=== PATIENT | female | born 1935 | race Caucasian/White ===

== ENCOUNTER → 2017-11-25 09:07 | Outpatient (CLI) | payer MEDICARE, OTHER, SELFPAY ==
--- NOTE | 2017-11-25 09:13 | US_ITS ---
HISTORY: ITS.REASON: EPIGASTRIC ABDOMINAL PAIN ORDERING PHYSICIAN: Jerrell Solomon MD PATIENT AGE: 82 years COMPARISON: None FINDINGS: PANCREAS: Unremarkable. No obvious mass or abnormal fluid collection. No ductal dilatation LIVER: No focal liver lesions demonstrated. Homogeneous echogenicity. No intrahepatic biliary ductal dilatation evident RIGHT KIDNEY: Unremarkable. Normal size and echogenicity. No hydronephrosis GALLBLADDER: No gallstones, gallbladder wall thickening, pericholecystic fluid, or biliary dilatation. IMPRESSION: Negative gallbladder/right upper quadrant ultrasound
== END ==
PROVIDERS: Family Provider Family Medicine; PCP Family Medicine; Visit Provider Family Medicine
DX: R10.13 Epigastric pain (principal)
CPT/HCPCS: 76705

== ENCOUNTER → 2018-11-10 14:10 | Outpatient (CLI) | payer MEDICARE, OTHER, SELFPAY ==
--- NOTE | 2018-11-10 14:14 | XR_ITS ---
XR knee RT 4V HISTORY: ITS.REASON: LAT RT KNEE PAIN ORDERING PHYSICIAN: Jerrell Solomon MD PATIENT AGE: 82 years COMPARISON: None FINDINGS: No fracture or dislocation. No lytic or blastic change. Normal mineralization. No significant arthritic changes evident. There is mild diffuse osteopenia. Generalized vascular calcification evident as well.. There is some minimal chondrocalcinosis of the menisci IMPRESSION: 1. No acute finding. 2. Minimal degenerative change
--- NOTE | 2018-11-10 14:14 | XR_ITS ---
XR hip RT 2-3V w/pelvis HISTORY: ITS.REASON: RT HIP PAIN ORDERING PHYSICIAN: Jerrell Solomon MD PATIENT AGE: 82 years COMPARISON: 03/27/2010 FINDINGS: There are moderate to severe osteoarthritic changes of the right hip. No fracture or dislocation. No lytic or blastic change. There is a bipolar prosthesis on the left. Left lower quadrant ostomy is noted and there are degenerative changes in the lumbar spine as well as the SI joints. IMPRESSION: Some moderate to severe osteoarthritis of the right hip with other degenerative changes as described above
== END ==
PROVIDERS: PCP Family Medicine; Visit Provider Family Medicine
DX: M25.561 Pain in right knee (principal); M25.551 Pain in right hip
CPT/HCPCS: 73502; 73564

== ENCOUNTER → 2019-08-14 14:00 | Outpatient (CLI) | payer MEDICARE, OTHER, SELFPAY ==
--- NOTE | 2019-08-14 14:14 | XR_ITS ---
PROCEDURE: XR HIP LT 2-3V W/PELVIS CLINICAL INDICATION: LT HIP PAIN Left hip pain COMPARISON: HIPCMRT XR hip RT 2-3V w/pelvis from 11/10/2018 FINDINGS: Status post left hip arthroplasty with bipolar prosthesis present in good alignment. No evidence of acute fracture. Incidental note is made of osteoarthritis of the right hip with degenerative changes of the lumbar spine and SI joints. An ostomy is present in the left lower quadrant. IMPRESSION: Status post left hip replacement with bipolar prosthesis with osteoarthritis and no acute finding Dictated by: Avery Cordero MD 08/14/2019 17:11 Electronically signed by Avery Cordero MD in [place] 08/14/2019 17:11
--- NOTE | 2019-08-14 14:14 | XR_ITS ---
PROCEDURE: XR KNEE LT 3V CLINICAL INDICATION: LT KNEE PAIN Left knee pain COMPARISON: [id number] XR knee RT 4V from 11/10/2018 FINDINGS: No fracture or dislocation. No lytic or blastic change. There is normal mineralization. There are mild osteoarthritic changes of the medial compartment and patellofemoral joint. There is chondrocalcinosis medially. Nonspecific calcification noted superior to the patella and could represent a small loose body. There is vascular calcification. IMPRESSION: Mild osteoarthritic change with possible loose body in the suprapatellar region with chondrocalcinosis Dictated by: Avery Cordero MD 08/14/2019 17:13 Electronically signed by Aveyr Cordero MD in [facility] 08/14/2019 17:13
== END ==
PROVIDERS: PCP Family Medicine; Visit Provider Family Medicine
DX: M25.552 Pain in left hip (principal)
CPT/HCPCS: 73502; 73562

== ENCOUNTER → 2020-04-11 11:36 | Outpatient (CLI) | payer MEDICARE, OTHER, SELFPAY ==
[2020-04-13 06:08] LABS: Covid-19 Nasal PCR Sendout Lex Not Detected
== END ==
PROVIDERS: PCP Family Medicine; Visit Provider Family Medicine
DX: Z03.818 Encounter for observation for suspected exposure to other biological agents ruled out (principal)
CPT/HCPCS: U0004

== ENCOUNTER → 2020-08-30 14:56 | Outpatient (CLI) | payer MEDICARE, OTHER, SELFPAY ==
--- NOTE | 2020-08-30 15:03 | US_ITS ---
APPROVED REPORT Exam Type: Lower Extremity Segmental Pressures Hazmat Cdl A Driver: Kristine Shine RDCS Indications Claudication: Rest Pain: Edema Current Smoker History of Smoking Risk Factors Diabetes Pressures/Indices Right Indices Left Indices Brachial 176.00 mmHg Brachial 181.00 mmHg Low Thigh 174.00 mmHg 0.96 Low Thigh 157.00 mmHg 0.87 Calf 163.00 mmHg 0.90 Calf 98.00 mmHg 0.54 Ankle(PT) 144.00 mmHg 0.80 Ankle(PT) 86.00 mmHg 0.48 Ankle(DP) 144.00 mmHg 0.80 Ankle(DP) 80.00 mmHg 0.44 Digit 52.00 mmHg 0.29 Digit 51.00 mmHg 0.28 Findings DIMINISHED WAVEFORMS AT ANKLES NORMAL PULSES R NOREEN .8 L NOREEN .5 R TBI .3 L TBI .3 CALLED OFFICE SPOKE TO JOVANNI Conclusion DIMINISHED WAVEFORMS AT ANKLES NORMAL PULSES R NOREEN .8 L NOREEN .5 R TBI .3 L TBI .3 Moderate arterial disease CALLED OFFICE SPOKE TO JOVANNI Electronically signed by : Avery Cordero MD 08/30/2020 15:50:48
== END ==
PROVIDERS: PCP Family Medicine; Visit Provider Family Medicine
DX: I70.213 Atherosclerosis of native arteries of extremities with intermittent claudication, bilateral legs (principal)
CPT/HCPCS: 93923

== ENCOUNTER → 2020-09-16 09:51 | Outpatient (CLI) | payer MEDICARE, OTHER, SELFPAY ==
--- NOTE | 2020-09-16 10:19 | CT_ITS ---
Procedure: CT ANGIO ABDOMEN/FEMORAL CLINICAL HISTORY: POOR CIRCULATION OF EXTREMITY poor circulation of bilat lower extremities 120ml iso 370, 100ml saline US, 08/30/[address] COMPARISON: No exams were available for comparison TECHNIQUE: IV Contrast: 100ml Isovue 370 Axial images obtained with sagittal and coronal reformats. All CT scans at the facility use one or more dose reduction, viz: automated exposure control, ma/kV adjustment per patient size (including targeted exams where dose is matched to indication, i.e. head), or iterative reconstruction technique. FINDINGS: There are atheromatous changes the abdominal aorta and its branches. No aneurysm, dissection, or significant stenosis is evident. Small amount of plaque involving the left renal artery but no significant stenosis. There is 30 percent stenosis of the right renal artery. Calcific plaque is present at the ostium the celiac artery causing 30 percent stenosis. The SMA has an unremarkable appearance. The KUNAL is patent. Right lower extremity with runoff. Calcific plaque is present involving the right common iliac artery and right external iliac artery with no significant stenotic areas. 30 percent or less stenosis present in the right external iliac. Right common femoral shows no significant stenosis with some scattered calcific plaque Scattered atheromatous plaque involves the right femoral artery. There is a 50 percent stenosis involving the proximal right femoral artery moderate amount calcific plaque involves the distal right femoral artery with 50 stenosis. The right popliteal artery has an unremarkable appearance other than atherosclerotic change. Atherosclerotic changes involve the right tibial peroneal trunk in the runoff vessels. There is occlusion of the right anterior tib proximally. The Left lower extremity runoff: Atheromatous changes involve the left common and external iliac artery with no significant stenosis. 50 percent stenosis involves the proximal femoral artery. There are scattered segmental areas of calcific and soft plaque involving the left femoral artery. There is critical stenosis involving the mid aspect of the left femoral artery with 90 percent stenosis. A string sign is present at this area. Long segment stenosis involves the mid aspect of the left femoral artery at this region and measures approximately 10 cm in length. Scattered atheromatous changes involve the left popliteal artery. There is 3 vessel runoff on the left to the ankle There is a left lower quadrant ostomy containing small bowel. Moderate amount of small-bowel has herniated into the hernia sac in the abdominal wall. No intestinal obstruction it is difficult to determine the type of surgery the patient has had due to the multiple loops of unopacified bowel. There is thickening of the presacral fat with increased density in the presacral region. There are other areas of decreased attenuation in this region which could be related unopacified bowel or abscess. Suggest repeat CT abdomen pelvis with adequate oral contrast for further delineation. Please correlate with patient's surgical history. There are no previous exams available at this institution for comparison. There are degenerative changes in the hips. There is a 5 cm cystic structure in the right adnexa nonspecific. IMPRESSION: 1. A diffuse atheromatous changes of the aorta iliac vessels and lower extremity runoff vessels. This is causing areas of stenosis. 2. 50 percent or less stenosis involving the right proximal femoral artery and distal right femoral artery the with 3 vessel runoff on the right. 3. Severe segmental areas of stenosis of the left femoral artery with critical stenosis in the mid aspect
[2020-09-16 10:35] LABS: Blood Urea Nitrogen 7 mg/dl (7-17); Estimated Glomerular Filt Rate 153 ml/min (>60); GFR (African American) 185 ML/MIN (>60)
== END ==
PROVIDERS: PCP Family Medicine; Visit Provider Family Medicine
DX: R09.89 Other specified symptoms and signs involving the circulatory and respiratory systems (principal); I70.213 Atherosclerosis of native arteries of extremities with intermittent claudication, bilateral legs; I77.1 Stricture of artery; R60.0 Localized edema; F17.210 Nicotine dependence, cigarettes, uncomplicated
CPT/HCPCS: 36415; 75635; 82565; 84520; Q9967

== ENCOUNTER → 2020-09-24 12:34 | Outpatient (CLI) | payer MEDICARE, OTHER, SELFPAY ==
[2020-09-24 12:48] LABS: Basophils % 0.8 % (0.1-2.0); Eosinophils # 0.1 K/mm3 (0.0-0.4); Eosinophils % 1.1 % (0.1-12.0); Hematocrit 37.6 % (37.0-47.0); Hemoglobin 11.7 g/dL (12.2-16.2); Lymphocytes # 1.1 K/mm3 (0.7-4.5); Lymphocytes % 18.9 % (10-50); Mean Corpuscular HGB Conc 31.2 g/dL (31.8-35.4); Mean Corpuscular Hemoglobin 28.3 pg (27.0-31.2); Mean Corpuscular Volume 90.7 fl (81-99); Mean Platelet Volume 9.3 fl (7.4-10.4); Monocytes # 0.2 K/mm3 (0.1-1.0); Monocytes % 4.1 % (1.7-9.3); Neutrophils # 4.4 K/mm3 (1.8-7.8); Neutrophils % 75.2 % (37.0-80.0); Platelet Count 424 K/mm3 (142-424); Red Blood Count 4.15 M/mm3 (4.20-5.40); Red Cell Distribution Width 18.6 % (11.5-17.5); White Blood Count 5.9 K/mm3 (4.8-10.8)
[2020-09-24 14:25] LABS: Chloride 97 mmol/L (98-107); Potassium 5.2 mmoL/L (3.5-5.1); Sodium 132 mmol/L (136-145)
[2020-09-24 14:28] LABS: Anion Gap 11.2 mEq/L (5-15); Blood Urea Nitrogen 9 mg/dl (7-17); Calcium 10.7 mg/dl (8.4-10.2); Carbon Dioxide 29 mmol/L (22.0-30.0); Estimated Glomerular Filt Rate 118 ml/min (>60); GFR (African American) 143 ML/MIN (>60); Glucose 91 mg/dl (74-100)
[2020-09-24 15:35] LABS: Coronavirus 19 IgG Antibody Negative (Negative); Coronavirus 19 IgM Antibody Negative (Negative)
== END ==
PROVIDERS: Visit Provider Internal Medicine
DX: Z01.818 Encounter for other preprocedural examination (principal); I25.10 Atherosclerotic heart disease of native coronary artery without angina pectoris
CPT/HCPCS: 36415; 80048; 85025; 86328

== ENCOUNTER 2020-09-25 07:59 | Day surgery (SDC) | payer MEDICARE, OTHER, SELFPAY ==
[2020-09-25] VITALS (12 sets, daily range): BP systolic 121–182; BP diastolic 53–91; PULSE 60–80; RESP 12–18; TEMP 36.7; O2SAT 91–100; BMI 26.9
--- NOTE | 2020-09-25 07:13 | IR_ITS ---
APPROVED REPORT Patient Location: Outpatient PROCEDURES Catheter placement in the abdominal aorta Abdominal aortography Bilateral iliofemoral runoff Informed consent was obtained prior to the procedure. COMPLICATIONS NONE Estimated Blood Loss: LESS THAN 10 ML TECHNIQUE 1% lidocaine used anesthetize the right groin the right femoral artery was accessed via the Salinger technique and a 5 Croatian sheath was placed in the right femoral artery. A pigtail catheter was advanced and abdominal aortography was performed. The catheter was then repositioned and bilateral iliofemoral angiography was performed. At the end of the procedure the apparatus was removed the sheath was removed good hemostasis was achieved using manual pressure patient was transferred to the postop holding in stable condition ANGIOGRAPHIC RESULTS The distal abdominal aorta is widely patent with mild 10% atheromatous plaque. The bilateral common iliac arteries are widely patent with 20% stenoses. The bilateral internal iliac arteries are patent. The bilateral external iliac arteries and bilateral common femoral arteries are widely patent. Bilateral profunda femoris arteries are patent The right superficial femoral artery has mild to moderate atheromatous plaque in the proximal and mid segment nothing greater than 40%. At Ck's canal there is a 60 to 70% stenosis. The popliteal artery has mild atheromatous plaque and then gives rise to the anterior tibialis artery posterior tibialis artery and peroneal artery. There is three-vessel runoff into the right foot The left superficial femoral artery has proximal 40% stenoses and then severely stenosed with a long 90% mid vessel stenosis. The vessel has a nice collateral from the profunda femoris artery which collateralizes into the proximal popliteal artery. The popliteal artery then has mild atheromatous plaque with three-vessel runoff below the foot. Blood equally distributes and arrives at the left and right foot simultaneously IMPRESSION Peripheral artery disease as described above most notably with a severely stenosed left superficial femoral artery PLAN 1. I recommend medical management at this time. The initial CTA report referred to the left femoral artery is being severely stenosed however angiography demonstrates its the left superficial femoral artery which is severely stenosed. This does not significantly exchange administrator. Patient's symptoms do not appear to support revascularization at this time. I would recommend patient undergo aggressive physical therapy with walking protocol. 2. Patient can be reevaluated in 4 to 6 weeks to determine if physical therapy has improved her symptoms. This particular stenosis should only be producing left calf pain and not thigh pain and hip pain the patient was previously describing. Typically patients with this type of stenosis can be managed medically and less poorly healing ulcer develops or recalcitrant claudication. Electronically signed by : Donis Natarajan, 09/25/2020 14:32:59
== END 2020-09-25 13:19 | disposition home or self-care (01) ==
LOC: CATHLAB 08:00
PROVIDERS: PCP Family Medicine; Visit Provider Internal Medicine
DX: E11.51 Type 2 diabetes mellitus with diabetic peripheral angiopathy without gangrene (principal); I70.211 Atherosclerosis of native arteries of extremities with intermittent claudication, right leg; M79.89 Other specified soft tissue disorders; R93.5 Abnormal findings on diagnostic imaging of other abdominal regions, including retroperitoneum; Z79.84 Long term (current) use of oral hypoglycemic drugs; I10 Essential (primary) hypertension; E78.5 Hyperlipidemia, unspecified; Z72.0 Tobacco use; Z79.899 Other long term (current) drug therapy; I77.1 Stricture of artery
CPT/HCPCS: 36247; 75716; 99152; 99153; C1725; C1769; C1894; J1644; Q9966

== ENCOUNTER → 2021-01-02 14:15 | Outpatient (CLI) | payer MEDICARE, OTHER, SELFPAY ==
--- NOTE | 2021-01-02 14:20 | CT_ITS ---
PROCEDURE: CT CHEST WO/W CON CLINCAL INDICATION: WEIGHT LOSS,COUGH,MUCOSITIS,SMOKER,HEMOPTYSIS COMPARISON: CT CTA CTA-CHEST from 05/31/2016 TECHNIQUE: IV Contrast: 75ml Isovue 370 Axial images obtained with sagittal and coronal reformats. All CT scans at the facility use one or more dose reduction, viz: automated exposure control, ma/kV adjustment per patient size (including targeted exams where dose is matched to indication, i.e. head), or iterative reconstruction technique. FINDINGS: There is a large right upper lobe mass encompassing the apical and anterior segments of the right upper measuring by 13 by 7 cm cephalad caudad, AP, and transverse respectively. The mass extends from the apex of the right upper lobe inferiorly with extension into the right hilum and middle mediastinal area with constriction of the right upper lobe arteries. There is consolidation within the posterior segment right upper lobe with nodular areas which may be due to dense consolidation or satellite nodules from the mass. No destructive changes of the overlying thoracic wall. The mass does not appear to extend through the thoracic wall. There is right-sided the volume loss with mediastinal shift toward the right. Enlarged precarinal node is present at 1.9 cm. A central precarinal node measures 1.4 cm and there are mildly prominent subcarinal nodes measuring 1.7 and 1.8 cm. There are changes of COPD. No effusions are evident. The there is no left hilar adenopathy in no extension mediastinal adenopathy past midline. No bony destructive process. There is an old right 5th rib fracture. No bony destructive process. Coronary artery calcifications are present. No adrenal mass. IMPRESSION: Large right upper lobe mass as described above with extension into the middle mediastinum and right hilum and with mediastinal adenopathy consistent with neoplasm. There is associated consolidation in the posterior segment of the right upper lobe with nodular opacities which could represent satellite nodules or dense areas of consolidation. Dictated by: Avery Cordero MD 01/04/2021 11:00 Avery Cordero MD in [place] 01/04/2021 11:00
== END ==
PROVIDERS: PCP Family Medicine; Visit Provider Family Medicine
DX: R05 Cough (principal); R63.4 Abnormal weight loss; K12.30 Oral mucositis (ulcerative), unspecified; F17.210 Nicotine dependence, cigarettes, uncomplicated
CPT/HCPCS: 71270; Q9967

== ENCOUNTER → 2021-01-20 10:26 | Outpatient (CLI) | payer MEDICARE, OTHER, SELFPAY ==
[2021-01-20 11:42] LABS: Blood Urea Nitrogen 11 mg/dl (7-17); Estimated Glomerular Filt Rate 118 ml/min (>60); GFR (African American) 143 ML/MIN (>60)
== END ==
PROVIDERS: Visit Provider Family Medicine
DX: D38.1 Neoplasm of uncertain behavior of trachea, bronchus and lung (principal); M54.2 Cervicalgia
CPT/HCPCS: 36415; 82565; 84520

== ENCOUNTER → 2021-01-23 10:27 | Outpatient (CLI) | payer MEDICARE, OTHER, SELFPAY ==
--- NOTE | 2021-01-23 10:32 | CT_ITS ---
PROCEDURE: CT SOFT TISSUE NECK W CON CLINICAL HISTORY: OROPHARYNGEAL DYSPHAGIA Right sided neck/throat pain x several months Pt states that sometimes there is a knot that comes up No palpable area today, but general location marked with BB COMPARISON: CT HDWO CT HEAD W/O CONTRAST from 05/31/[address] CHEST WO/W CON from 01/02/2021 TECHNIQUE: Oral Contrast: 75 mL Isovue 370 IV Contrast: None Axial images obtained with sagittal and coronal reformats. All CT scans at the facility use one or more dose reduction, viz: automated exposure control, ma/kV adjustment per patient size (including targeted exams where dose is matched to indication, i.e. head), or iterative reconstruction technique. FINDINGS: The nasopharynx has an unremarkable appearance. There is some mild thickening in the left parapharyngeal region at the level of the uvula. Correlation with direct visualization suggested. The epiglottis has an unremarkable appearance as does the glottic and subglottic region. There has been prior anterior cervical disc fusion at C5-C6 and C7. There is a 1.8 x 0.8 cm nodule in the subcutaneous tissues superficial to the right masseter muscle and may represent an enlarged lymph node. The area of palpable concern is marked with a BB. Deep to this region is a normal-appearing submandibular gland. No abscess apparent. Coronary artery calcification is noted bilaterally. Large right upper lobe necrotic mass is once again noted consistent with neoplasm. At the level of the aortic arch the mass measures at least 13 by 6.8 cm. The mass appears larger compared to the previous chest CT of 01/02/2021 however some of this could be related to postobstructive changes. A small collection of blood vessels is noted in the temporal lobe on the right anteriorly consistent with an AVM. This cluster of vessels measures 10 mm in AP dimension. Prominent hypertrophic changes are present at the sternoclavicular joint with pannus formation on both sides IMPRESSION: 1. No abnormality corresponding to the placed BB which is the area of palpable concern. Submandibular gland is present deep to this region. 2. 1.8 x 1 cm subcutaneous nodular lesion superficial to the right masseter muscle and may be due to a mildly prominent lymph node. 3. Mild thickening in the left parapharyngeal region at the level of the uvula. Direct visualization may provide further evaluation. 4. Large right upper lobe mass as recently described which appears somewhat larger compared to the previous chest CT some of which could be due to postobstructive pneumonitis. 5. 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
== END ==
PROVIDERS: PCP Family Medicine; Visit Provider Family Medicine
DX: M54.2 Cervicalgia (principal); R13.12 Dysphagia, oropharyngeal phase
CPT/HCPCS: 70491; Q9967

== ENCOUNTER → 2021-01-27 12:04 | Outpatient (CLI) | payer MEDICARE, OTHER, SELFPAY ==
[2021-01-27 12:43] LABS: Basophils % 0.2 % (0.1-2.0); Eosinophils % 0.6 % (0.1-12.0); Hematocrit 31.3 % (37.0-47.0); Hemoglobin 9.6 g/dL (12.2-16.2); Lymphocytes # 0.8 K/mm3 (0.7-4.5); Lymphocytes % 11.5 % (10-50); Mean Corpuscular HGB Conc 30.6 g/dL (31.8-35.4); Mean Corpuscular Hemoglobin 27.4 pg (27.0-31.2); Mean Corpuscular Volume 89.7 fl (81-99); Mean Platelet Volume 7.5 fl (7.4-10.4); Monocytes # 0.3 K/mm3 (0.1-1.0); Monocytes % 3.7 % (1.7-9.3); Neutrophils # 6.1 K/mm3 (1.8-7.8); Platelet Count 453 K/mm3 (142-424); Red Blood Count 3.49 M/mm3 (4.20-5.40); Red Cell Distribution Width 16.4 % (11.5-17.5); White Blood Count 7.3 K/mm3 (4.8-10.8)
[2021-01-27 13:09] LABS: Prothrombin Time 11.6 seconds (10.1-12.5)
[2021-01-27 13:10] LABS: INR 0.98 (0.9-1.1)
== END ==
PROVIDERS: Visit Provider Internal Medicine Pulmonary Disease
DX: J45.909 Unspecified asthma, uncomplicated (principal); I73.9 Peripheral vascular disease, unspecified; R59.0 Localized enlarged lymph nodes
CPT/HCPCS: 36415; 85025; 85610

== ENCOUNTER → 2021-02-04 10:20 | Outpatient (CLI) | payer MEDICARE, OTHER, SELFPAY | PROVIDERS: PCP Family Medicine; Visit Provider Internal Medicine Pulmonary Disease | DX: Z20.822 Contact with and (suspected) exposure to COVID-19 (principal) | CPT/HCPCS: U0003 ==

== ENCOUNTER 2021-02-05 09:02 | Day surgery (SDC) | payer MEDICARE, OTHER, SELFPAY ==
[2021-01-31 12:44] VITALS: BMI 25.7
[2021-02-05] VITALS (12 sets, daily range): BP systolic 119–151; BP diastolic 55–80; PULSE 72–86; RESP 16–18; TEMP 36.1–43; O2SAT 90–97
[2021-02-05 10:29] LABS: POC Glucose,Bedside 120 (70-110)
--- NOTE | 2021-02-05 10:49 | P.PN_ITS ---
[facility] Anesthesia Checklist - Structural Data Admitted From: Home Planned Operative Procedure/s: bronchoscopy Consent for Planned Operative Procedure(s) Verified: Yes - Additional verifications Anesthesia Reactions: No Hx Blood Transfusions: Yes Blood Transfusion Reaction: No - Airway Assessment C-Spine Mobility Assessed: Yes TMJ Mobility Assessed: Yes Dentition: Dentures-good fit - Neurological Assessment Level of Consciousness: Awake, Alert, Appropriate - Anesthesia Plan Anesthesia Risk discussed: Yes Anesthesia Plan: Verified ASA Class: III Anesthesia Type: General [facility] History I have reviewed the patient's past medical history: Yes Medical History: Reports:: Diabetes Mellitus Type 2, Hyperlipidemia, Hypertension Denies:: Cancer, Diabetes Mellitus Type 1, Internal Pacemaker, Lung Disease, MRSA, Seizures *Have you ever received a pneumonia vaccine?: Yes *Have you received a flu vaccine this season?: Yes Other Medical History: Reports: Anemia. Denies: Blood Transfusion Reaction Anesthesia experience/problems:: none Laterality Cases: Bilateral: Other Other Surgeries: Yes: No Previous Surgery, Angiogram, Cancer Surgery, Colonoscopy. No: Pacemaker Amputation: No Fractures: No - *Social History Last grade of school completed: GED Smoking Status: Current every day smoker Tobacco Type: cigarettes # Packs/Day (cigarettes): 1 #Yrs smoked (if former smoker): 60 Alcohol Intake: never Substance Use Type: denies use *Occupational Status:: retired Housing: house *Travel in the last 8 weeks: None Family Hx:: Coronary Artery Disease
--- NOTE | 2021-02-05 11:56 | P.PN_ITS ---
[facility] Anesthesia Record Part I Intake, IV Amount: 1,000 Estimated blood loss (mL): 0 Urine output (mL): 0 Blood Pressure: 148/61 SaO2: 97 Pulse Rate: 77 Respiratory Rate: 16 Temperature: 97 F Patient is:: Drowsy, Stable Stable to PACU at:: 11:50
[2021-02-05 12:03] LABS: POC Glucose,Bedside 118 (70-110)
--- NOTE | 2021-02-05 12:43 | HMH.BRONCH ---
- Procedure: Date: 02/05/21 Patient Date of :: 1935 Procedure Performed:: Bronchoscopy with endobronchial ultrasound fine-needle aspiration and endobronchial biopsies Indications:: Lung mass and lymphadenopathy Performing Provider:: Elfego Lezama MD Referring Provider:: Dr. Solomon Sedation:: General anesthesia Procedure:: Clean endobronchial ultrasound bronchoscopy advance to the 8 state ET tube and lymph node stations were examined, patient was found to have lymphadenopathy at stations 10 L, 7, 4R and 10 R. Endobronchial ultrasound-guided fine-needle aspirations were performed at stations 10 L, 7 and 4R. At stations 10 L and 7 adequate lymphocytes were found however no malignancy found on bedside examination. Station 4R is positive for malignancy likely non-small cell lung cancer. 5 passes were performed at each lymph node tissues tissues were also sent for CytoLyt examination along with slides at bedside. EBUS bronchoscopy was retracted and the diagnostic bronchoscopy was advanced and airways were examined up to subsegmental bronchi. The right upper lobe bronchi is completely occluded with the mass and the mass seen protruding into the right mainstem bronchi. Endobronchial biopsies were performed, total of 7 biopsies were performed. Bedside touch prep preparation by the pathology positive for atypical cells likely non-small cell lung cancer. Rest of the airway appeared grossly normal. No evidence of bleeding or mucous plugging noted. Hemostasis achieved after the biopsies. Patient tolerated the procedure well. We will schedule the patient with hematology oncology before discharge today. Will follow with the patient in pulmonary clinic within a week to discuss the final results. Findings:: Please see the procedure note Recommendations:: Please see the procedure note Complications:: None Estimated blood obtained (mL): 5
--- NOTE | 2021-02-06 11:35 | P.PN_ITS ---
[facility] Anesthesia Record Part II Discharge Time: 12:20 Destination: [facility] PACU nurse assessment reviewed?: Yes Patient Condition:: Good Anesthesia Complications:: None Swallowing reflex intact?: Yes Cyanosis?: No Blood Pressure: 128/69 Pulse Rate: 77 Temperature: 99.2 F Mental Status: Alert & Oriented Pain level:: 0 Nausea and/or vomitting:: None Intake, IV Amount: 1,500
[2021-02-06 11:36] VITALS: BP 128/69; PULSE 77; TEMP 37.3
== END 2021-02-05 13:07 | disposition home or self-care (01) ==
LOC: OR 09:04
PROVIDERS: PCP Family Medicine; Visit Provider Internal Medicine Pulmonary Disease
DX: C34.11 Malignant neoplasm of upper lobe, right bronchus or lung (principal); R91.8 Other nonspecific abnormal finding of lung field; E11.9 Type 2 diabetes mellitus without complications; I10 Essential (primary) hypertension; E78.5 Hyperlipidemia, unspecified; Z72.0 Tobacco use; Z79.84 Long term (current) use of oral hypoglycemic drugs; Z79.899 Other long term (current) drug therapy; Z93.3 Colostomy status; Z85.038 Personal history of other malignant neoplasm of large intestine; Z85.41 Personal history of malignant neoplasm of cervix uteri
CPT/HCPCS: 31624; 31653; 82962; 88172; 88173; 88177; 88305; 88342; J2405

== ENCOUNTER 2021-02-17 14:11 | Outpatient (CLI) | payer MEDICARE, OTHER, SELFPAY ==
[2021-02-17 14:17] VITALS: BP 116/63; PULSE 87; RESP 18; TEMP 36.4; O2SAT 97
[2021-02-17 14:40] VITALS: BP 123/67; PULSE 84; RESP 18; O2SAT 97
== END 2021-02-17 14:40 | disposition home or self-care (01) ==
LOC: INF 14:11
PROVIDERS: Visit Provider Family Medicine
DX: D50.8 Other iron deficiency anemias (principal)
CPT/HCPCS: 96374; Q0138

== ENCOUNTER 2021-02-20 14:14 | Outpatient (CLI) | payer MEDICARE, OTHER, SELFPAY ==
[2021-02-20 14:35] VITALS: BP 161/66; PULSE 98; RESP 18; TEMP 36.4; O2SAT 96
[2021-02-20 15:00] VITALS: BP 158/67; PULSE 88; RESP 18; O2SAT 97
== END 2021-02-20 15:00 | disposition home or self-care (01) ==
LOC: INF 14:14
PROVIDERS: Visit Provider Family Medicine
DX: D58.8 Other specified hereditary hemolytic anemias (principal)
CPT/HCPCS: 96374; Q0138

== ENCOUNTER 2021-04-09 01:28 | Inpatient (IN) | payer MEDICARE, OTHER, SELFPAY ==
[2021-04-09] VITALS (15 sets, daily range): BP systolic 96–143; BP diastolic 50–74; PULSE 78–120; RESP 16–24; TEMP 36.8–38.5; O2SAT 91–99; BMI 24.0; BMI 24.5
--- NOTE | 2021-04-09 01:32 | ECG_ITS ---
APPROVED REPORT Exam: Resting ECG HR:108 bpm ECG Measurements Heart Rate 108 AXES RI 132 P 50 QRSd 74 QRS 30 QT 304 T 44 QTc 407 Conclusion Sinus tachycardia with premature atrial complexes Low voltage QRS Borderline ECG Electronically signed by : Jerrell Reynolds, 04/12/2021 11:10:41
--- NOTE | 2021-04-09 01:40 | XR_ITS ---
PROCEDURE INFORMATION: Exam: XR Chest Exam date and time: 04/09/2021 1:40 AM Age: 85 years old Clinical indication: Cough and other: Lung cancer patient; Patient HX: Lung cancer, cough TECHNIQUE: Imaging protocol: XR of the chest. Views: 1 view. COMPARISON: CT CHEST WO/W CON 01/02/2021 3:28 PM FINDINGS: Lungs: Postsurgical volume loss involving the right hemithorax. Dense airspace disease at the right upper lobe with volume loss involving the right hemithorax. Consider pneumonia versus tumor. Left lung is clear with no pneumothorax. Pleural spaces: Unremarkable. No pleural effusion. No pneumothorax. Heart/Mediastinum: Fullness of the cardiac silhouette. Tortuous thoracic aorta. Bones/joints: Degenerative changes of the spine and acromioclavicular joints. Cervicothoracic fusion hardware identified. IMPRESSION: Persisting dense opacity at the right upper lobe. Differential diagnosis includes tumor as well as pneumonia.
[2021-04-09 01:50] LABS: Hematocrit 28.6 % (37.0-47.0); Lymphocytes # 0.2 K/mm3 (0.7-4.5); Lymphocytes % 2.5 % (10-50); Mean Corpuscular HGB Conc 31.6 g/dL (31.8-35.4); Mean Corpuscular Hemoglobin 28.9 pg (27.0-31.2); Mean Corpuscular Volume 91.5 fl (81-99); Mean Platelet Volume 7.9 fl (7.4-10.4); Monocytes # 0.2 K/mm3 (0.1-1.0); Monocytes % 3.4 % (1.7-9.3); Neutrophils # 6.8 K/mm3 (1.8-7.8); Neutrophils % 94.1 % (37.0-80.0); Platelet Count 318 K/mm3 (142-424); Red Blood Count 3.12 M/mm3 (4.20-5.40); Red Cell Distribution Width 20.2 % (11.5-17.5); White Blood Count 7.2 K/mm3 (4.8-10.8)
[2021-04-09 01:53] LABS: Microscopic, Urine URINE MICROSCOPIC (MICROSCOPIC)
--- NOTE | 2021-04-09 01:53 | PC.NURSE ---
daughter at bedside
[2021-04-09 01:54] LABS: Alanine Aminotransferase 13 U/L (12-78); Albumin Level 2.9 g/dl (3.5-5.0); Alkaline Phosphatase 142 U/L (38-126); Anion Gap 8.1 mEq/L (5-15); Aspartate Amino Transferase 20 U/L (14-36); Bilirubin,Direct 0.3 mg/dl (0.0-0.4); Bilirubin,Indirect 0.1 mg/dL (0.0-0.9); Bilirubin,Total 0.4 mg/dl (0.2-1.3); Bilirubin,Unconjugated 0.1 mg/dL (0.0-1.1); Blood Urea Nitrogen 21 mg/dl (7-17); Calcium 9.1 mg/dl (8.4-10.2); Carbon Dioxide 25 mmol/L (22.0-30.0); Chloride 98 mmol/L (98-107); Creatinine Clearance Estimated 43 mL/min (50-200); Estimated Glomerular Filt Rate 152 ml/min (>60); GFR (African American) 184 ML/MIN (>60); Glucose 99 mg/dl (74-100); Potassium 4.1 mmoL/L (3.5-5.1); Sodium 127 mmol/L (136-145); Total Protein,Serum 5.7 g/dl (6.3-8.2)
[2021-04-09 01:54] LABS: Appearance,Urine CLEAR (Clear); Bilirubin,Urine Negative (Negative); Blood, Urine TRACE-I (Negative); Color,Urine YELLOW (Yellow); Glucose,Urine (UA) Negative (Negative); Ketones,Urine 2+ (Negative); Leukocyte Esterase,Urine 1+ (Negative); Nitrate,Urine POSITIVE (Negative); Protein,Urine 1+ (Negative); Specific Gravity, Urine 1.025 (1.005-1.030); Urobilinogen,Urine 0.2 EU/dl (0.2)
[2021-04-09 02:00] LABS: C-Reactive Protein 301.1 mg/L (0-4)
[2021-04-09 02:01] LABS: MANUAL DIFFERENTIAL MANUAL DIFFERENTIAL (MANUAL DIFF)
[2021-04-09 02:03] LABS: Amorphous Sediment,Urine 1+ /lpf; Bacteria,Urine 3+ /lpf; Mucus,Urine 1+ /lpf
--- NOTE | 2021-04-09 02:05 | CT_ITS ---
PROCEDURE INFORMATION: Exam: CT Thoracic Spine Without Contrast Exam date and time: 04/09/2021 2:05 AM Age: 85 years old Clinical indication: Pain in thoracic spine; Without myelpathy or radiculopathy; Patient HX: Decreased mobility and increased back pain this am. PT has lung cancer and rectal cancer TECHNIQUE: Imaging protocol: Computed tomography images of the thoracic spine without contrast. Radiation optimization: All CT scans at this facility use at least one of these dose optimization techniques: automated exposure control; mA and/or kV adjustment per patient size (includes targeted exams where dose is matched to clinical indication); or iterative reconstruction. COMPARISON: No relevant prior studies available. FINDINGS: Vertebrae: Diffuse osteopenia. Multilevel spine degenerative changes. No critical central canal stenosis. No significant neural foraminal stenosis. Discs/Spinal canal/Neural foramina: See Vertebrae finding. Other bones/joints: No unusual lytic or sclerotic lesions of bone. Soft tissues: Large soft tissue mass occupying the majority of the right upper lobe is concerning for a malignancy and contains central necrosis. Heart: Multivessel coronary calcific arteriosclerosis. IMPRESSION: 1. Large right upper lobe heterogeneous mass with central necrosis. This is incompletely imaged on this study but is concerning for malignancy. 2. No critical central canal stenosis involving the thoracic spine. 3. Small right pleural effusion.
--- NOTE | 2021-04-09 02:05 | CT_ITS ---
PROCEDURE INFORMATION: Exam: CT Lumbar Spine Without Contrast Exam date and time: 04/09/2021 2:05 AM Age: 85 years old Clinical indication: Low back pain; Prior surgery; Surgery date: 6+ months; Surgery type: Hip, colon; Patient HX: Decreased mobility and increased back pain this am. HX of lung and rectal cancer TECHNIQUE: Imaging protocol: Computed tomography images of the lumbar spine without contrast. Radiation optimization: All CT scans at this facility use at least one of these dose optimization techniques: automated exposure control; mA and/or kV adjustment per patient size (includes targeted exams where dose is matched to clinical indication); or iterative reconstruction. COMPARISON: No relevant prior studies available. FINDINGS: Vertebrae: Diffuse osteopenia. Discs/Spinal canal/Neural foramina: Multilevel spine degenerative changes. At least moderate degenerative of the SI joints. Severe degenerative disease at L4-L5 due to multifactorial degenerative changes. Sacrum/coccyx: Symmetric sclerotic changes involving the right and left sacral ala could potentially represent osteonecrosis. Pleural space: Small right pleural effusion. Vasculature: Atherosclerotic calcifications of the nonaneurysmal aorta and iliac arteries. Atherosclerotic calcifications of the splenic arteries. Soft tissues: Unremarkable. IMPRESSION: Symmetric sclerosis involving the right and left sacral ala could potentially represent osteonecrosis.
[2021-04-09 02:09] LABS: Troponin I 0.02 ng/ml (0.00-0.034)
--- NOTE | 2021-04-09 02:11 | CT_ITS ---
PROCEDURE INFORMATION: Exam: CT Cervical Spine Without Contrast Exam date and time: 04/09/2021 2:11 AM Age: 85 years old Clinical indication: Neck pain; Prior surgery; Surgery date: 6+ months; Surgery type: Cervical spine; Patient HX: Decreased mobility and increased neck and back pain this am. PT has rectal and lung cancer TECHNIQUE: Imaging protocol: Computed tomography images of the cervical spine without contrast. Radiation optimization: All CT scans at this facility use at least one of these dose optimization techniques: automated exposure control; mA and/or kV adjustment per patient size (includes targeted exams where dose is matched to clinical indication); or iterative reconstruction. COMPARISON: CT SOFT TISSUE NECK W CON 01/23/2021 10:47 AM FINDINGS: Atherosclerotic calcifications of the internal carotid arteries bilaterally. C5 through C7 anterior cervical discectomy and fusion. Diffuse osteopenia. Multilevel degenerative changes. No acute or healing fracture. No critical central canal stenosis. Mass at the right apex. IMPRESSION: 1. No acute or healing fracture or acute posttraumatic malalignment. 2. No evidence for metastatic disease. 3. Large mass at the right pulmonary apex is concerning for a malignancy.
[2021-04-09 02:14] LABS: Procalcitonin 0.307 ng/mL (0.0-2.0)
[2021-04-09 02:19] LABS: Lactic Acid 0.9 mmol/L (0.7-2.1)
[2021-04-09 02:25] LABS: Adenovirus,PCR Not Detected (NotDetected); Bordetella Pertussis Not Detected (NotDetected); Chlamydophila Pneumoniae, PCR Not Detected (NotDetected); Coronavirus 19, PCR Not Detected (NotDetected); Coronavirus 229E Not Detected (NotDetected); Coronavirus NL63 Not Detected (NotDetected); Coronavirus OC43 Not Detected (NotDetected); Coronovirus HKU1,PCR Not Detected (NotDetected); Human Metapneumovirus Not Detected (NotDetected); Influenza A, PCR Not Detected (NotDetected); Influenza AH1, 2009 Not Detected (NotDetected); Influenza AH1, PCR Not Detected (NotDetected); Influenza AH3,PCR Not Detected (NotDetected); Influenza B, PCR Not Detected (NotDetected); Mycoplasma Pneumoniae, PCR Not Detected (NotDetected); Parainfluenza 1, PCR Not Detected (NotDetected); Parainfluenza 2, PCR Not Detected (NotDetected); Parainfluenza 3, PCR Not Detected (NotDetected); Parainfluenza 4, PCR Not Detected (NotDetected); Respiratory Syncytial Virus Not Detected (NotDetected); Rhinovirus/Enterovirus Not Detected (NotDetected)
[2021-04-09 02:28] LABS: NT Pro Brain Natriuretic Pep. 2090 pg/mL (0-450)
--- NOTE | 2021-04-09 03:04 | HMH.EDGENADL ---
ED Disposition Clinical Impression: Febrile illness, acute, SIRS (systemic inflammatory response syndrome) UTI (urinary tract infection) Qualifiers: Urinary tract infection type: site unspecified Hematuria presence: without hematuria Qualified Code(s): N39.0 - Urinary tract infection, site not specified Diabetes mellitus Qualifiers: Diabetes mellitus type: type 2 Diabetes mellitus intermission coordinator insulin use: unspecified intermission coordinator insulin use status Diabetes mellitus complication status: with other specified complication Qualified Code(s): E11.69 - Type 2 diabetes mellitus with other specified complication Anemia Qualifiers: Anemia type: unspecified type Qualified Code(s): D64.9 - Anemia, unspecified Lung cancer Qualifiers: Laterality: right Lung location: upper lobe of lung Qualified Code(s): C34.11 - Malignant neoplasm of upper lobe, right bronchus or lung Disposition: Admitted As Inpatient Condition on Discharge: Serious - Critical Care Critical Care Time: No Attestation: On 04/09/21, the high probability of a clinically significant, sudden or life threatening deterioration of the following system(s) required my full and direct attention, intervention and personal management. The time I documented below is in addition to time spent performing reported procedures but includes the following listed in this critical care notation. Medical Decision Making - Medical Records Medical records reviewed: Yes: I reviewed the patient's medical records. - Antonio Inquiry Pt receiving controlled substance: No Vital Signs: 04/09/21 01:28 04/09/21 01:30 04/09/21 02:00 Temperature 101.3 F H Temperature Source Rectal Pulse Rate 119 H 103 H Pulse Rate [Left Radial] 110 H Respiratory Rate 21 19 24 Blood Pressure 115/61 104/51 L Blood Pressure [Right Arm] 118/67 Blood Pressure Mean Blood Pressure Mean [Right Arm] 84 Blood Pressure Source [Right Arm] Automatic Cuff Blood Pressure Position [Right Arm] Sitting 02 Sat by Pulse Oximetry 98 95 94 L Oxygen Delivery Method Room Air Room Air Room Air 04/09/21 02:30 04/09/21 03:01 Temperature Temperature Source Pulse Rate 90 87 Pulse Rate [Left Radial] Respiratory Rate 22 20 Blood Pressure 96/51 L 109/55 L Blood Pressure [Right Arm] Blood Pressure Mean 73 Blood Pressure Mean [Right Arm] Blood Pressure Source [Right Arm] Blood Pressure Position [Right Arm] 02 Sat by Pulse Oximetry 95 96 Oxygen Delivery Method Room Air Room Air - Lab Data Lab results reviewed: Yes: I reviewed the patient's lab results. Lab Results 04/09/21 01:30: WBC 7.2, RBC 3.12 L, Hgb 9.0 L, Hct 28.6 L, MCV 91.5, MCH 28.9, MCHC 31.6 L, RDW 20.2 H, Plt Count 318, MPV 7.9, Neut % (Auto) 94.1 H, Lymph % (Auto) 2.5 L, [place] % (Auto) 3.4, Eos % (Auto) 0.0 L, Baso % (Auto) 0.0 L, Neut # (Auto) 6.8, Lymph # (Auto) 0.2 L, [place] # (Auto) 0.2, Eos # (Auto) 0.0, Baso # (Auto) 0.0 04/09/21 01:30: Sodium 127 L, Potassium 4.1, Chloride 98, Carbon Dioxide 25, Anion Gap 8.1, BUN 21 H, Creatinine 0.40 L, Estimated Creat Clear 43, Estimated GFR 152, Est GFR ( Amer) 184, Glucose 99, Calcium 9.1, Total Bilirubin 0.4, Direct Bilirubin 0.3, Conjugated Bilirubin 0.0, Indirect Bilirubin 0.1, Unconjugated Bilirubin 0.1, AST 20, ALT 13, Alkaline Phosphatase 142 H, Troponin I 0.02, C-Reactive Protein 301.1 H, Total Protein 5.7 L, Albumin 2.9 L 04/09/21 01:30: Procalcitonin 0.307 04/09/21 01:30: NT-Pro-B Natriuret Pep 2090 H 04/09/21 01:52: Urine Color Yellow, Urine Appearance Clear, Urine pH 6.0, Ur Specific [place] 1.025, Urine Protein 1+, Urine Glucose (UA) Negative, Urine Ketones 2+, Urine Blood Trace-i, Urine Nitrate Positive, Urine Bilirubin Negative, Urine Urobilinogen 0.2, Ur Leukocyte Esterase 1+ A, Urine RBC 3-5, Urine WBC 3-5, Ur Squamous Epith Cells 3-5, Amorphous Sediment 1+, Urine Bacteria 3+, Urine Mucus 1+ 04/09/21 02:03: Lactate 0.9 Result diagrams: 04/09/21 01:30 04/09/21 01:30
--- NOTE | 2021-04-09 03:08 | PC.NURSE ---
patient back from CT
[2021-04-09 03:40] LABS: Lymphocytes % 1 % (10-50); Monocytes % 3 % (2-9); Neutrophils % 96 % (42-76); Ovalocytes 1+; Platelet Estimate Normal; Total Cells Counted 100
[2021-04-09 03:41] LABS: Stomatocytes 1+
--- NOTE | 2021-04-09 04:03 | PC.NURSE ---
Called report to Cinda TAYLOR on . Pt & updated on POC.
[2021-04-09 04:06] LABS: Erythrocyte Sedimentation Rate > 140 mm/hr (0-30)
--- NOTE | 2021-04-09 04:20 | PC.NURSE ---
patient up to floor via stretcher.
[2021-04-09 07:02] LABS: Chloride 101 mmol/L (98-107); Potassium 3.6 mmoL/L (3.5-5.1); Sodium 128 mmol/L (136-145)
[2021-04-09 07:03] LABS: POC Glucose,Bedside 127 (70-110)
[2021-04-09 07:05] LABS: Anion Gap 7.6 mEq/L (5-15); Blood Urea Nitrogen 18 mg/dl (7-17); Calcium 8.6 mg/dl (8.4-10.2); Carbon Dioxide 23 mmol/L (22.0-30.0); Creatinine Clearance Estimated 44 mL/min (50-200); Estimated Glomerular Filt Rate 152 ml/min (>60); GFR (African American) 184 ML/MIN (>60); Glucose 139 mg/dl (74-100); Magnesium 1.2 mg/dl (1.6-2.3)
--- NOTE | 2021-04-09 07:16 | HMH.HP ---
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 Patient reports her level of pain left her feeling like she was paralyzed. Patient had had 2 falls recently and a history of prior sacral fracture. Patient is on chronic pain medication at home because of back pain but pain had increased and was not responding to her usual dose of medication. On presentation in the emergency department patient was found to have a fever. Temperature was 101.3. Additional work-up revealed the presence of urinary tract infection. Patient reports urinary frequency but no dysuria. She denies shortness of breath. She is witnessed coughing during the interview which she claims is a stable and due to her malignancy. Patient has previously had hemoptysis although that has seemed to resolve. Patient finished her first cycle of radiation therapy on April 07 and her third infusion of chemotherapy. [facility] History I have reviewed the patient's past medical history: Yes Medical History: Reports:: Cancer, Diabetes Mellitus Type 2, Hyperlipidemia, Hypertension Denies:: Diabetes Mellitus Type 1, Internal Pacemaker, Lung Disease, MRSA, Seizures *Have you ever received a pneumonia vaccine?: Yes *Have you received a flu vaccine this season?: Yes Other Medical History: Reports: Anemia, Arthritis, Chemotherapy. Denies: Blood Transfusion Reaction Laterality Cases: Left: Arthroscopy Hip, Right: Arthroscopy Shoulder, Bilateral: Other Other Surgeries: Yes: No Previous Surgery, Angiogram, Cancer Surgery (resection/colostomy), Colonoscopy, Colon Resection, Colostomy, Hysterectomy-Total, Other. No: Pacemaker Amputation: No Fractures: No - *Social History Last grade of school completed: 11th or 12th Smoking Status: Current every day smoker Tobacco Type: cigarettes # Packs/Day (cigarettes): 1 #Yrs smoked (if former smoker): 60 Alcohol Intake: never Substance Use Type: denies use *Occupational Status:: retired Housing: house Household Members: none *Travel in the last 8 weeks: None Family Hx:: No significant family history, Non-contributory Review of Systems - Constitutional Reports anorexia, Reports body ache(s), Reports fatigue, Reports lack of energy, Reports weight loss, Denies chills - Eyes Denies blurry vision - ENT Denies abnormal hearing - *Cardiovascular Denies chest pain at rest - *Respiratory Denies chest congestion - *Gastrointestinal Denies abdominal pain, Denies belching - *Genitourinary Reports blood in urine, Denies abnormal periods, Denies painful urination - *Musculoskeletal Reports abnormal walking, Reports joint pain, Reports decreased muscle mass, Reports back pain - Integumentary/Breasts Reports hair loss, Denies bleeding lesions - *Neurologic Reports abnormal hearing, Reports weakness, Denies abnormal walking, Denies abnormal speech, Denies localized weakness, Denies seizure-like activity - Psychiatric Denies lack of enjoyment - Endocrine Reports cold intolerance, Reports excessive sweating Meds Home Medications Medication Instructions Recorded Confirmed Type gabapentin 100 mg capsule 100 mg PO TID cap 05/23/18 04/09/21 History hydrocodone 10 mg-acetaminophen 1 tab PO Q6HP PRN tab 05/23/18 04/09/21 History 325 mg tablet Aspirin 81 mg PO DAILY 07/25/18 04/09/21 History folic acid 1 mg tablet 1 mg PO DAILY 09/24/20 04/09/21 History lisinopril 20 mg tablet 40 mg PO DAILY tab 09/24/20 04/09/21 History metformin 850 mg tablet 850 mg PO BID 09/24/20 04/09/21 History methotrexate sodium 10 mg tablet 2.5 mg PO WEEKLY tab 09/24/20 04/09/21 History primidone 50 mg tablet 50 mg PO HS 09/24/20 04/09/21 History Ascorbic Acid [Vitamin C] 1,000 mg PO DAILY 04/09/21 04/09/21 History Cholecalciferol (Vitamin D3
--- NOTE | 2021-04-09 07:34 | HMH.PHAVTE ---
[facility] Pharmacy VTE Monitoring - Patient Demographics Admission date: 04/08/21 Report Date: 04/09/21 Time: 07:35 Allergies/Adverse Reactions: Patient Allergies No Known Allergies Allergy (Verified 03/06/21 10:15) Height: 1.63 m Weight: 64.92 kg Patient Problems: Current Active Problems Febrile illness, acute (Acute) UTI (urinary tract infection) (Acute) SIRS (systemic inflammatory response syndrome) (Acute) Diabetes mellitus (Chronic) Anemia (Acute) Lung cancer (Acute) 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 (Chronic) Anemia of chronic disease (Chronic) Iron deficiency anemia (Chronic) - VTE Risk Labs: VTE Related Lab Results Hgb 9.0 g/dL (12.2-16.2) L 04/09/21 01:30 Hct 28.6 % (37.0-47.0) L 04/09/21 01:30 Plt Count 318 K/mm3 (142-424) 04/09/21 01:30 BUN 18 mg/dl (7-17) H 04/09/21 06:42 Creatinine 0.40 mg/dl (0.52-1.04) L 04/09/21 06:42 Estimated Creat Clear 44 mL/min (50-200) 04/09/21 06:42 Was VTE Risk Assessment Performed: Yes VTE Score: 7 VTE Risk Level: Moderate Risk Clinical Trial Participant: No - Prophylaxis VTE Prophylaxis Ordered?: Yes Types of VTE Prophylaxis: TEDS Knee High Location of Applied Device: Bilateral Lower Extremeties
--- NOTE | 2021-04-09 08:00 | CA_ITS ---
APPROVED REPORT Bilateral Lower Extremity Venous Study for Nursing Specialist: CN Indications immobility/swelling Risk Factors Lung CA, SOA, Anemia, CHF Vein Imaging CFV (R): compressive, spontaneous, phasic, augmentation SFJ (R): compressive, spontaneous, phasic, augmentation FEM (R): compressive, spontaneous, phasic, augmentation POP (R): compressive, spontaneous, phasic, augmentation DFV (R): compressive, spontaneous, phasic, augmentation PTV (R): compressive, spontaneous, phasic, augmentation GSV (R): compressive, spontaneous, phasic, augmentation SSV (R): compressive, spontaneous, phasic, augmentation Peroneals (R):compressive, spontaneous, phasic, augmentation GAS (R): compressive, spontaneous, phasic, augmentation CFV (L): compressive, spontaneous, phasic, augmentation SFJ (L): compressive, spontaneous, phasic, augmentation FEM (L): compressive, spontaneous, phasic, augmentation POP (L): compressive, spontaneous, phasic, augmentation DFV (L): compressive, spontaneous, phasic, augmentation PTV (L): compressive, spontaneous, phasic, augmentation GSV (L): compressive, spontaneous, phasic, augmentation SSV (L): compressive, spontaneous, phasic, augmentation Peroneals (L):compressive, spontaneous, phasic, augmentation GAS (L): compressive, spontaneous, phasic, augmentation Findings Color flow duplex demonstrates no evidence of DVT of the following bilateral lower extremity Veins:Common Femoral Vein, Femoral Vein, Popliteal Vein, Posterior Tibial Veins, Peroneal Veins. Negative for DVT Conclusion Negative for DVT Electronically signed by : Avery Cordero MD 04/09/2021 17:21:47
[2021-04-09 08:11] LABS: Eosinophils % 0.3 % (0.1-12.0); Hemoglobin 8.1 g/dL (12.2-16.2); Lymphocytes # 0.1 K/mm3 (0.7-4.5); Lymphocytes % 2.6 % (10-50); Mean Corpuscular HGB Conc 32.3 g/dL (31.8-35.4); Mean Corpuscular Volume 89.7 fl (81-99); Mean Platelet Volume 8.9 fl (7.4-10.4); Monocytes # 0.2 K/mm3 (0.1-1.0); Monocytes % 4.4 % (1.7-9.3); Neutrophils # 5.1 K/mm3 (1.8-7.8); Neutrophils % 92.7 % (37.0-80.0); Platelet Count 241 K/mm3 (142-424); Red Blood Count 2.79 M/mm3 (4.20-5.40); Red Cell Distribution Width 20.1 % (11.5-17.5); White Blood Count 5.5 K/mm3 (4.8-10.8)
[2021-04-09 08:33] LABS: Troponin I < 0.01 ng/ml (0.00-0.034)
--- NOTE | 2021-04-09 09:05 | HMH.PTEV ---
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 Patient reports her level of pain left her feeling like she was paralyzed. Patient had had 2 falls recently and a history of prior sacral fracture. Patient is on chronic pain medication at home because of back pain but pain had increased and was not responding to her usual dose of medication. On presentation in the emergency department patient was found to have a fever. Temperature was 101.3. Additional work-up revealed the presence of urinary tract infection. Patient reports urinary frequency but no dysuria. She denies shortness of breath. She is witnessed coughing during the interview which she claims is a stable and due to her malignancy. Patient has previously had hemoptysis although that has seemed to resolve. Patient finished her first cycle of radiation therapy on April 07 and her third infusion of chemotherapy . -copied from H&P Subjective Subjective Pt reports c/o pain in tailbone w/ movement Rehab PT IP Eval Objective Appearance Patient Behavior Cooperative Patient Orientation Person,Place,Time Difficulty following instructions none Speech Pattern Clear,Appropriate Ambulation Patient Able to Ambulate Yes Ambulation Observation IP General Gait Patter
--- NOTE | 2021-04-09 09:33 | HMH.PHAINT ---
MEDICATION RECONCILIATION COMPLETED ON PATIENT USING PATIENT'S OWN BOTTLES. -NEAL ZAIDI, CAROLINED
[2021-04-09 10:17] LABS: Troponin I < 0.01 ng/ml (0.00-0.034)
[2021-04-09 18:16] LABS: POC Glucose,Bedside 132 (70-110)
[2021-04-09 20:11] LABS: POC Glucose,Bedside 133 (70-110)
[2021-04-10] VITALS: BP 148/76; PULSE 120; PULSE 78; RESP 18; TEMP 37.7; O2SAT 93
[2021-04-10 00:40] LABS: POC Glucose,Bedside 117 (70-110)
--- NOTE | 2021-04-10 03:54 | PC.NURSE ---
A&OX4. PT TOLERATING RA WELL. PT HAS INTERMITTENT COUGH T/O SHIFT, NON PRODUCTIVE. PT HAS HAD TEMP HIGHEST OF 101. TX WITH TYLENOL PER DEC. ON REASSESSMENT TEMP 98.6. PT HAS SLEPT MAJORITY OF SHIFT THUS FAR, NO OTHER C/O AT THIS TIME. PT IS VERY WEAK. COLOSTOMY PRESENT, STOMA LIGHT PINK AND MOIST. VSS WILL CONTINUE TO MONITOR.
[2021-04-10 04:00] VITALS: BP 140/72; PULSE 100; PULSE 96; RESP 17; TEMP 36.8; O2SAT 95
[2021-04-10 05:07] VITALS: BMI 24.6
[2021-04-10 05:15] LABS: POC Glucose,Bedside 110 (70-110)
--- NOTE | 2021-04-10 05:49 | PC.NURSE ---
PT REFUSING MORNING LABS AT THIS TIME.
[2021-04-10 08:00] VITALS: BP 150/73; PULSE 92; RESP 19; TEMP 36.7; O2SAT 98
--- NOTE | 2021-04-10 08:12 | XR_ITS ---
PROCEDURE: XR TIBIA FIBULA RT 2V CLINICAL INDICATION: wheelchair Pain COMPARISON: CR [id number] XR knee RT 4V from 11/10/2018 FINDINGS: No fracture or dislocation. No lytic or blastic change. There is normal mineralization. The joint spaces are well-preserved. No significant degenerative/arthritic changes. No erosive changes evident. Other findings:Small area of soft tissue calcification noted along the dorsal aspect the distal femur nonspecific IMPRESSION: No acute findings. Dictated by: Avery Cordero MD 04/10/2021 10:28 Avery Cordero MD in [place] 04/10/2021 10:28
--- NOTE | 2021-04-10 08:13 | HMH.ACPN2 ---
Internal Medicine - PN: Subj *Date: 04/10/21 *Time: 08:13 Interval history: Patient has a new complaint this morning of right lower leg pain. She refused to allow her blood to be drawn this morning because she is a difficult stick. Patient underwent PT eval yesterday and SNF or home health PT with close home supervision was recommended. Patient also had a fever overnight Exam Vital signs and Labs for Last 24 Hours: Temp Pulse Resp BP Pulse Ox 98.2 F 96 H 17 140/72 95 04/10/21 04:00 04/10/21 04:00 04/10/21 04:00 04/10/21 04:00 04/10/21 04:00 Laboratory Results - last 24 hr 04/09/21 06:42: Troponin I < 0.01 04/09/21 06:42: WBC 5.5, RBC 2.79 L, Hgb 8.1 L, Hct 25.0 L, MCV 89.7, MCH 29.0, MCHC 32.3, RDW 20.1 H, Plt Count 241, MPV 8.9, Neut % (Auto) 92.7 H, Lymph % (Auto) 2.6 L, [place] % (Auto) 4.4, Eos % (Auto) 0.3, Baso % (Auto) 0.0 L, Neut # (Auto) 5.1, Lymph # (Auto) 0.1 L, [place] # (Auto) 0.2, Eos # (Auto) 0.0, Baso # (Auto) 0.0 04/09/21 07:53: Troponin I < 0.01 04/09/21 12:06: POC Glucose 133 H 04/09/21 18:07: POC Glucose 132 H 04/09/21 21:29: POC Glucose 117 H 04/10/21 05:06: POC Glucose 110 I & O for Last 24 hours: Intake & Output 04/07/21 04/08/21 04/09/21 04/10/21 11:59 11:59 11:59 11:59 Intake Total 1290 / 1290 738 / 738 Output Total 250 / 250 Balance 1040 / 1040 738 / 738 Weight 143 lb 2 oz 144 lb 7 oz Microbiology Reports for the Last 24 Hours: Microbiology 04/09/21 01:52 Urine,Clean Catch Urine Culture - Preliminary NO GROWTH AFTER 24 HOURS Narrative: Patient looks comfortable. Lungs are clear. Heart rate is slightly tachycardic with extrasystolic beats. Abdomen is soft. Right lower extremity is tender to touch but not erythematous. Patient has 1+ bilateral lower extremity edema primarily from the mid shins to the anterior ankles Assessment and Plan (1) UTI (urinary tract infection) Status: Acute Qualifiers: Urinary tract infection type: acute cystitis Hematuria presence: without hematuria Qualified Code(s): N30.00 - Acute cystitis without hematuria Category: Medical Code(s): N39.0 - Urinary tract infection, site not specified (2) 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 Category: Medical Code(s): C34.91 - Malignant neoplasm of unspecified part of right bronchus or lung (3) Anemia of chronic disease Status: Chronic Category: Medical Code(s): D63.8 - Anemia in other chronic diseases classified elsewhere (4) Iron deficiency anemia Status: Chronic Category: Medical Code(s): D50.9 - Iron deficiency anemia, unspecified (5) Diabetes mellitus Status: Chronic Qualifiers: Diabetes mellitus type: type 2 Diabetes mellitus nursing home insulin use: without ocean transportation intermediary use Diabetes mellitus complication status: with other specified complication Qualified Code(s): E11.69 - Type 2 diabetes mellitus with other specified complication Category: Medical Code(s): E11.9 - Type 2 diabetes mellitus without complications (6) Right leg pain Status: Acute Category: Medical Code(s): M79.604 - Pain in right leg - Assessment and plan all Dx Assessment and Plan for all problems:: 1. Patient have an x-ray of her right lower leg. 2. Continue antibiotics for urinary tract infection 3. As long as x-ray of the right lower leg is unremarkable patient will be discharged home
--- NOTE | 2021-04-10 08:19 | HMH.DCSUM ---
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 Patient reports her level of pain left her feeling like she was paralyzed. Patient had had 2 falls recently and a history of prior sacral fracture. Patient is on chronic pain medication at home because of back pain but pain had increased and was not responding to her usual dose of medication. On presentation in the emergency department patient was found to have a fever. Temperature was 101.3. Additional work-up revealed the presence of urinary tract infection. Patient reports urinary frequency but no dysuria. She denies shortness of breath. She is witnessed coughing during the interview which she claims is a stable and due to her malignancy. Patient has previously had hemoptysis although that has seemed to resolve. Patient finished her first cycle of radiation therapy on April 07 and her third infusion of chemotherapy. Hospital Course Hospital Course: Patient was admitted for suspected urinary tract infection and placed on Rocephin. This was continued until discharge and transition to oral antibiotics. At the time of discharge urine culture was showing no growth. Patient did have a fever the evening prior to discharge and it is likely that her malignancy is also contributing to fever. Patient remains asymptomatic during her fevers. Patient has stage III squamous cell carcinoma of the lung. This causes a chronic cough. She was given Robitussin-DM Patient complained of pain in her back as well as her right lower leg. X-rays of the back were unremarkable. Right lower leg x-ray was ordered. Objective Vital signs: Temp Pulse Resp BP Pulse Ox 98.2 F 96 H 17 140/72 95 04/10/21 04:00 04/10/21 04:00 04/10/21 04:00 04/10/21 04:00 04/10/21 04:00 Results Labs on day of discharge: Labs from last 24 hours 04/10/21 04/09/21 04/09/21 05:06 21:29 18:07 POC Glucose 110 117 H 132 H Troponin I 04/09/21 04/09/21 04/09/21 12:06 07:53 06:42 POC Glucose 133 H Troponin I < 0.01 < 0.01 Preliminary micro results at discharge 04/09/21 01:52 Urine Culture - Preliminary Urine,Clean Catch NO GROWTH AFTER 24 HOURS DS: Diagnosis - Discharge Diagnosis (1) UTI (urinary tract infection) Status: Acute (2) 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 (3) Anemia of chronic disease Status: Chronic (4) Iron deficiency anemia Status: Chronic (5) Diabetes mellitus Status: Chronic (6) Right leg pain Status: Acute Discharge Plan - Patient Discharge Instructions ACTIVITY: Continue current activity DIET: continue same diet Patient Instructions: Anemia, Squamous Cell Carcinoma, DI for Urinary Tract Infection (UTI) - Follow up Plan Follow up with: Jerrell Solomon MD [Primary Care Provider] - 04/16/21 Disposition: Home, Self-Care Condition at discharge:: Stable Home Medications: Home Medications Medication Instructions Recorded Confirmed Type gabapentin 100 mg capsule 100 mg PO QID cap 05/23/18 04/09/21 History hydrocodone 10 mg-acetaminophen 1 tab PO Q6HP PRN tab 05/23/18 04/09/21 History 325 mg tablet Aspirin 81 mg PO DAILY 07/25/18 04/09/21 History folic acid 1 mg tablet 1 mg PO DAILY 09/24/20 04/09/21 History metformin 850 mg tablet 850 mg PO BIDWM 09/24/20 04/09/21 History Ascorbic Acid [Vitamin C] 1,000 mg PO DAILY 04/09/21 04/09/21 History Cholecalciferol (Vitamin D3) 1,000 unit PO DAILY 04/09/21 04/09/21 History [Vitamin D3 1,000 Unit Cap] Cinnamon Bark [Cinnamon] 1,000 mg PO DAILY 04/09/21 04/09/21 History Iron Polysaccharide Complex [Pro 180 mg PO DAILY 04/09/21 04/09/21 History Fe] Multivit-Min/Iron/Folic/[id number] 1 each P
--- NOTE | 2021-04-10 10:40 | SW/DCPLANNER ---
RECEIVED REFERRAL FOR THIS PATIENT FOR HOME HEALTH SERVICES... I SPOKE WITH PATIENT AND DAUGHTER AND THEY HAVE REQUESTED [facility].. I SENT THE REFERRAL FOR HOME HEALTH PRISON, PT EVAL AND TREAT... PATIENT IS DISCHARGING HOME TODAY AND WILL BE FOLLOWING UP IN THE OFFICE NEXT WEEK...
== END 2021-04-10 13:00 | disposition home or self-care (01) | DRG 690 ==
LOC: ER 01:33 → 2ND 03:39
PROVIDERS: Admitting Provider Emergency Medicine; Emergency Provider Emergency Medicine; PCP Family Medicine; Visit Provider Family Medicine
DX: N39.0 Urinary tract infection, site not specified (principal); C34.11 Malignant neoplasm of upper lobe, right bronchus or lung; D63.0 Anemia in neoplastic disease; Z79.84 Long term (current) use of oral hypoglycemic drugs; M54.5 Low back pain; E78.5 Hyperlipidemia, unspecified; Z20.822 Contact with and (suspected) exposure to COVID-19; I10 Essential (primary) hypertension; E11.42 Type 2 diabetes mellitus with diabetic polyneuropathy; Z91.81 History of falling; F17.210 Nicotine dependence, cigarettes, uncomplicated; Z85.048 Personal history of other malignant neoplasm of rectum, rectosigmoid junction, and anus; Z98.1 Arthrodesis status; D50.9 Iron deficiency anemia, unspecified; M19.90 Unspecified osteoarthritis, unspecified site; M79.661 Pain in right lower leg; Z96.649 Presence of unspecified artificial hip joint
CPT/HCPCS: 36415; 71045; 72125; 72128; 72131; 73590; 80048; 80076; 81001; 82962; 83605; 83735; 83880; 84145; 84484; 85007; 85025; 85651; 86140; 87040; 87086; 87581; 87633; 87798; 93005; 93306; 93970; 96365; 96366; 97116; 97162; 97530; 99284

== ENCOUNTER 2021-05-01 17:19 | Observation (INO) | payer MEDICARE, OTHER, MEDICAID, SELFPAY ==
[2021-05-01] VITALS (9 sets, daily range): BP systolic 141–162; BP diastolic 55–73; PULSE 77–107; RESP 18–22; TEMP 36.6–37.1; O2SAT 96–98; BMI 24.0; BMI 22.6
--- NOTE | 2021-05-01 17:29 | ECG_ITS ---
APPROVED REPORT Exam: Resting ECG HR:90 bpm ECG Measurements Heart Rate 90 AXES MI 138 P 55 QRSd 82 QRS 28 QT 352 T 48 QTc 430 Conclusion Sinus rhythm with marked sinus arrhythmia Low voltage QRS Septal infarct, age undetermined Abnormal ECG Electronically signed by : Jerrell Reynolds, 05/03/2021 07:27:49
--- NOTE | 2021-05-01 17:49 | XR_ITS ---
PROCEDURE INFORMATION: Exam: XR Chest Exam date and time: 05/01/2021 5:49 PM Age: 85 years old Clinical indication: Other: Dysphagia, patient has had radiation therapy to neck she stated. ; Patient HX: Dysphagia, patient has had radiation therapy to her neck she stated. TECHNIQUE: Imaging protocol: XR of the chest. Views: 1 view. Total images: 1 COMPARISON: CR XR CHEST PORTABLE 04/09/2021 1:58 AM FINDINGS: Lungs: Increased pulmonary expansion since 04/09/2021. Pulmonary vasculature grossly normal. Fully opacified right upper lobe distribution consistent with the patient's known lung cancer in post radiation treatment changes in this region. There is slight tracheal deviation towards the region suggesting local parenchymal retraction without positive mass effect. The appearance is unchanged from 04/09/2021. No definite infiltrates are identified, although it is difficult to exclude infiltrate in the right upper lobe region around the post treatment changes. Pleural spaces: Blunted right lateral costophrenic angle could relate to chronic pleural scarring or minimal basilar effusion and is unchanged. No pneumothorax. Heart/Mediastinum: Heart size normal. Vasculature: Moderate aortic ectasia/tortuosity and mild calcific atherosclerosis. Bones/joints: No acute osseous abnormalities are identified. Cervical fusion hardware without gross hardware complication or change. Other findings: The image is mismarked, right versus left. IMPRESSION: 1. Increased pulmonary expansion, otherwise no significant change from 04/09/2021. 2. No definite infiltrates are identified. 3. Right upper lobe density likely reflecting the patient's known lung cancer and post treatment changes. It is difficult to exclude elements of pneumonia in this region radiographically.
--- NOTE | 2021-05-01 18:11 | HMH.EDGENADL ---
ED Disposition Clinical Impression: Odynophagia, Hypokalemia Disposition: Still a Patient Condition on Discharge: Fair Referrals: Jerrell Solomon MD [Primary Care Provider] - - Critical Care Critical Care Time: No Attestation: On 05/01/21, the high probability of a clinically significant, sudden or life threatening deterioration of the following system(s) required my full and direct attention, intervention and personal management. The time I documented below is in addition to time spent performing reported procedures but includes the following listed in this critical care notation. Medical Decision Making - Medical Records Medical records reviewed: Yes: I reviewed the patient's medical records. - Antonio Inquiry Pt receiving controlled substance: No Vital Signs: 05/01/21 17:20 05/01/21 18:16 Temperature 98.5 F Temperature Source Oral Pulse Rate 91 H Pulse Rate [Radial] 107 H Respiratory Rate 22 18 Blood Pressure 147/62 H Blood Pressure [Right Arm] 141/55 H Blood Pressure Mean [Right Arm] 83 Blood Pressure Position [Right Arm] Sitting 02 Sat by Pulse Oximetry 98 96 - Lab Data Lab Results 05/01/21 18:25: WBC 1.9 L*, RBC 3.16 L, Hgb 9.0 L, Hct 28.3 L, MCV 89.5, MCH 28.5, MCHC 31.9, RDW 20.8 H, Plt Count 201, MPV 8.9, Neut % (Auto) 84.7 H, Lymph % (Auto) 10.1, Storey % (Auto) 4.4, Eos % (Auto) 0.3, Baso % (Auto) 0.4, Neut # (Auto) 1.6 L, Lymph # (Auto) 0.2 L, Storey # (Auto) 0.1, Eos # (Auto) 0.0, Baso # (Auto) 0.0 05/01/21 18:25: Sodium 134 L, Potassium 2.5 L*, Chloride 100, Carbon Dioxide 28, Anion Gap 8.5, BUN 10, Creatinine 0.30 L, Estimated Creat Clear 43, Estimated GFR 212, Est GFR ( Amer) 257, Glucose 92, Calcium 8.0 L, Total Bilirubin 0.3, AST 26, ALT 11 L, Alkaline Phosphatase 153 H, Total Protein 4.8 L, Albumin 2.4 L, Globulin 2.4, Albumin/Globulin Ratio 1.0 L 07/01/21 18:30: SARS-CoV-2 (PCR) Not detected, Influenza A Untype (PCR) Not detected, Influenza Type B (PCR) Not detected Result diagrams: 05/01/21 18:25 05/01/21 18:25 Orders (Tests/Meds): ED MEDICATIONS Generic Name Dose Route Start Last Admin Trade Name Freq PRN Reason Stop Dose Admin Sodium Chloride 1,000 mls @ 999 mls/hr 05/01/21 18:00 05/01/21 18:56 Sod Chlor 0.9% 1000ml Bag IV 05/01/21 19:00 999 mls/hr .Q1H1M ROSHAN Administration Morphine Sulfate 2 mg 05/01/21 17:49 Morphine 4mg/Ml Syringe IV 05/31/21 17:48 Q4HP PRN Mild to Moderate Pain Discontinued Medications Generic Name Dose Route Start Last Admin Trade Name Freq PRN Reason Stop Dose Admin Belladonna Alkaloids 60 ml 05/01/21 17:49 05/01/21 18:55 Gi Cocktail 60ml Udc PO 05/01/21 17:50 60 ml ONCE ONE Administration - Radiology Data #1 Image(s): Chest Image Reviewed: Yes I have reviewed radiologist's interpretation Findings consistent with known lung cancer with increased aeration and no mediastinal free air concerning for esophageal perforation. - ECG Data Tracing #1 I reviewed this ECG and interpreted as documented below: 85-year-old female EKG is normal sinus rhythm with sinus arrhythmia rate of 90 normal MO interval QTC prolongation is absent no acute ST segment changes concerning for acute ischemia. Medical Decision Narrative: 85-year-old female who presents for evaluation of painful swallowing with a history of radiation to treat lung cancer. Patient has been progressively worsening over the past week with significant inability to take liquids or solids due to pain. Patient is unable to take her home medications. She is plan to go to rehab but cannot go until cleared for swallowing. Labs are significant for mild neutropenia with absolute neutrophil count that is above 1000. Patient has a potassium of 2.6 asymptomatic on EKG however with significant dehydration will be managed inpatient due to inability to replete orally. 60 mEq was given via IV potassium runs and patient will be started on L
[2021-05-01 18:38] LABS: Basophils % 0.4 % (0.1-2.0); Eosinophils % 0.3 % (0.1-12.0); Hematocrit 28.3 % (37.0-47.0); Lymphocytes # 0.2 K/mm3 (0.7-4.5); Lymphocytes % 10.1 % (10-50); Mean Corpuscular HGB Conc 31.9 g/dL (31.8-35.4); Mean Corpuscular Hemoglobin 28.5 pg (27.0-31.2); Mean Corpuscular Volume 89.5 fl (81-99); Mean Platelet Volume 8.9 fl (7.4-10.4); Monocytes # 0.1 K/mm3 (0.1-1.0); Monocytes % 4.4 % (1.7-9.3); Neutrophils # 1.6 K/mm3 (1.8-7.8); Neutrophils % 84.7 % (37.0-80.0); Platelet Count 201 K/mm3 (142-424); Red Blood Count 3.16 M/mm3 (4.20-5.40); Red Cell Distribution Width 20.8 % (11.5-17.5); White Blood Count 1.9 K/mm3 (4.8-10.8)
[2021-05-01 18:47] LABS: Coronavirus 19, PCR Not Detected (NotDetected); Influenza A, PCR Not Detected (NotDetected); Influenza B, PCR Not Detected (NotDetected)
[2021-05-01 19:13] LABS: Chloride 100 mmol/L (98-107); Sodium 134 mmol/L (136-145)
[2021-05-01 19:15] LABS: Alanine Aminotransferase 11 U/L (12-78); Blood Urea Nitrogen 10 mg/dl (7-17); Creatinine Clearance Estimated 43 mL/min (50-200); Estimated Glomerular Filt Rate 212 ml/min (>60); GFR (African American) 257 ML/MIN (>60)
[2021-05-01 19:16] LABS: Albumin Level 2.4 g/dl (3.5-5.0); Alkaline Phosphatase 153 U/L (38-126); Anion Gap 8.5 mEq/L (5-15); Aspartate Amino Transferase 26 U/L (14-36); Bilirubin,Total 0.3 mg/dl (0.2-1.3); Carbon Dioxide 28 mmol/L (22.0-30.0); Globulin 2.4 g/dL (1.3-3.2); Glucose 92 mg/dl (74-100); Total Protein,Serum 4.8 g/dl (6.3-8.2)
--- NOTE | 2021-05-01 19:18 | PC.NURSE ---
attempted to review medication list with pt and family. unsure of pt's medications and forgot her list at home . pt has not taken any of her medications since yesterday due to difficulty swallowing
[2021-05-01 19:19] LABS: Potassium 2.5 mmoL/L (3.5-5.1)
--- NOTE | 2021-05-01 21:04 | PC.NURSE ---
patient up to floor via stretcher at this time.
--- NOTE | 2021-05-01 23:06 | PC.NURSE ---
Pt is poor historian about home medication. She states she doesn't know mg of medication and hasn't taken medication for a week because of difficulty swallowing
[2021-05-02] VITALS: BP 142/66; PULSE 85; RESP 16; TEMP 37.1; O2SAT 96
[2021-05-02 00:01] LABS: POC Glucose,Bedside 100 (70-110)
--- NOTE | 2021-05-02 03:26 | PC.NURSE ---
Pt has slept at intervals this shift. Has not c/o pain. She is very sensitive to touch and becomes uncomfortable during assessment especially when assessing BLE. It was noted that pt has 3+ pitting edema to BLE. VSS. LR is infusing @ 75 ml/hr. 3rd bag of potassium is infusing at this time. Pt has tolerated well. She is on telemetry while infusing. Pt has been NSR with PACs noted. Home medications could not be reconciled. Pt is poor historian and did not want daughter called until morning. Pt did say that she hasn't taken her medications for over a week due to having difficulty swallowing. No other concerns. Will continue to monitor.
[2021-05-02 04:00] VITALS: BP 163/68; PULSE 100; PULSE 77; RESP 18; TEMP 36.6; O2SAT 97
[2021-05-02 05:27] VITALS: BMI 22.7
[2021-05-02 07:02] LABS: Basophils % 0.4 % (0.1-2.0); Eosinophils % 0.7 % (0.1-12.0); Hemoglobin 9.2 g/dL (12.2-16.2); Lymphocytes # 0.3 K/mm3 (0.7-4.5); Lymphocytes % 10.4 % (10-50); Mean Corpuscular HGB Conc 31.8 g/dL (31.8-35.4); Mean Platelet Volume 8.2 fl (7.4-10.4); Monocytes # 0.1 K/mm3 (0.1-1.0); Monocytes % 4.5 % (1.7-9.3); Neutrophils # 2.1 K/mm3 (1.8-7.8); Platelet Count 212 K/mm3 (142-424); Red Blood Count 3.18 M/mm3 (4.20-5.40); Red Cell Distribution Width 20.5 % (11.5-17.5); White Blood Count 2.4 K/mm3 (4.8-10.8)
[2021-05-02 07:20] LABS: Anion Gap 7.1 mEq/L (5-15); Blood Urea Nitrogen 6 mg/dl (7-17); Calcium 7.7 mg/dl (8.4-10.2); Carbon Dioxide 29 mmol/L (22.0-30.0); Chloride 101 mmol/L (98-107); Creatinine Clearance Estimated 41 mL/min (50-200); Estimated Glomerular Filt Rate 212 ml/min (>60); GFR (African American) 257 ML/MIN (>60); Glucose 85 mg/dl (74-100); Magnesium 1.3 mg/dl (1.6-2.3); Potassium 3.1 mmoL/L (3.5-5.1); Sodium 134 mmol/L (136-145)
--- NOTE | 2021-05-02 07:22 | P.CONPHA_ITS ---
[facility] Pharmacy VTE Monitoring - Patient Demographics Admission date: 05/01/21 Report Date: 05/02/21 Time: 07:22 Allergies/Adverse Reactions: Patient Allergies No Known Allergies Allergy (Verified 03/06/21 10:15) Height: 1.63 m Weight: 60.413 kg Patient Problems: Current Active Problems Odynophagia (Acute) Hypokalemia (Acute) - VTE Risk Labs: VTE Related Lab Results Hgb 9.2 g/dL (12.2-16.2) L 05/02/21 06:50 Hct 29.0 % (37.0-47.0) L 05/02/21 06:50 Plt Count 212 K/mm3 (142-424) 05/02/21 06:50 BUN 10 mg/dl (7-17) 05/01/21 18:25 Creatinine 0.30 mg/dl (0.52-1.04) L 05/01/21 18:25 Estimated Creat Clear 43 mL/min (50-200) 05/01/21 18:25 Was VTE Risk Assessment Performed: Yes VTE Score: 7 VTE Risk Level: Moderate Risk Clinical Trial Participant: No - Prophylaxis VTE Prophylaxis Ordered?: Yes Types of VTE Prophylaxis: TEDS Knee High, Pharmacological Pharmacologic Type: Enoxaparin
--- NOTE | 2021-05-02 07:27 | HMH.HP ---
*Admission Date: 05/01/21 *Chief complaint: Painful swallowing *History of present illness: 85-year-old female presented to the emergency department due to weakness associated with poor p.o. 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 Patient's last treatment was April 18 when she finished her course of radiation therapy. She has had progressive increase in pain associated with swallowing to the point where she is now afraid or unable to swallow due to the pain. Patient has been trying to use viscous lidocaine at home but tells me she has been swishing and spitting the medicine as opposed to swallowing the medicine. She presented to the ER with this complaint. She was given a GI cocktail which did improve her pain briefly. Past medical history is significant for partial gastrectomy secondary to gastric cancer, and colon cancer [facility] History I have reviewed the patient's past medical history: Yes Medical History: Reports:: Cancer (lung, colon), Diabetes Mellitus Type 2, Hyperlipidemia, Hypertension Denies:: Diabetes Mellitus Type 1, Internal Pacemaker, Lung Disease, MRSA, Seizures *Have you ever received a pneumonia vaccine?: No *Have you received a flu vaccine this season?: No Other Medical History: Reports: Anemia, Arthritis, Chemotherapy. Denies: Blood Transfusion Reaction Laterality Cases: Left: Arthroscopy Hip, Right: Arthroscopy Shoulder, Bilateral: Other Other Surgeries: Yes: No Previous Surgery, Angiogram, Cancer Surgery (resection/colostomy), Colonoscopy, Colon Resection, Colostomy, Hysterectomy-Total, Other. No: Pacemaker Amputation: No Fractures: No - *Social History Smoking Status: Current every day smoker Tobacco Type: cigarettes # Packs/Day (cigarettes): 1 #Yrs smoked (if former smoker): 60 Alcohol Intake: never Substance Use Type: denies use *Occupational Status:: retired Housing: house Household Members: none *Travel in the last 8 weeks: None Family Hx:: No significant family history Review of Systems - Constitutional Reports anorexia, Reports lack of energy, Reports weight loss - Eyes Denies blurry vision - ENT Reports difficulty swallowing, Denies bleeding gums - *Cardiovascular Denies chest pain at rest - *Respiratory Reports chest congestion, Reports cough - *Gastrointestinal Reports difficulty swallowing, Denies belching, Denies change in bowel habits - *Genitourinary Denies painful urination - *Musculoskeletal Denies joint pain - Integumentary/Breasts Denies hair loss - *Neurologic Denies confusion - Psychiatric Denies lack of enjoyment Meds Home Medications Medication Instructions Recorded Confirmed Type gabapentin 100 mg capsule 100 mg PO QID cap 05/23/18 04/09/21 History hydrocodone 10 mg-acetaminophen 1 tab PO Q6HP PRN tab 05/23/18 04/09/21 History 325 mg tablet Aspirin 81 mg PO DAILY 07/25/18 05/01/21 History folic acid 1 mg tablet 1 mg PO DAILY 09/24/20 04/09/21 History metformin 850 mg tablet 850 mg PO BIDWM 09/24/20 04/09/21 History Ascorbic Acid [Vitamin C] 1,000 mg PO DAILY 04/09/21 05/01/21 History Cholecalciferol (Vitamin D3) 1,000 unit PO DAILY 04/09/21 04/09/21 History [Vitamin D3 1,000 Unit Cap] Iron Polysaccharide Complex [Pro 180 mg PO DAILY 04/09/21 04/09/21 History Fe] Multivit-Min/Iron/Folic/Qie690 1 each PO DAILY 04/09/21 04/09/21 History [Hair, Skin and Nails Tablet] Niacin (Inositol Niacinate) 500 mg PO DAILY 04/09/21 04/09/21 History [Niacin 500 mg Capsule] Johnston-3 Fatty Acids/Fish Oil 1 each PO DAILY 04/09/21 04/09/21 History [Johnston 3 Fish Oil Softgel] Primidone 50 mg PO HS 04/09/21 04/09/21 History Vitamin E Acid Succinate [Vitamin 400 units PO DAILY 04/09/21 04/09/21 History E 400 Unit Tab] metHOTREXate sodium [metHOTREXate 17.5 mg PO WEEKLY 04/09/21 04/09/21 History 2.5mg Tablet] lisinopriL [Zestril 40mg Tablet] 0.5 tab PO
[2021-05-02 07:43] VITALS: BP 152/71; PULSE 94; RESP 18; TEMP 36.9; O2SAT 99
[2021-05-02 11:36] VITALS: BP 138/54; PULSE 95; RESP 16; TEMP 36.6; O2SAT 99
--- NOTE | 2021-05-02 11:53 | HMH.PTEV ---
Physical Therapy Evaluation Rehab PT IP Evaluation Start: 05/02/21 07:44 Freq: ONCE Status: Active Protocol: Document 05/02/21 11:49 PHORNE (Rec: 05/02/21 11:52 PHORNE [id number]) Subjective/History History History 85 yowf adm to [facility] with general weakness and hypokalemia. Just finished radiation for cancer. She reports she lives alone 2-3 steps to enter the home, uses a walker and w/c for mobility at baseline. Subjective Subjective Pt reports feeling tired, B lower legs tender to palpation with increased 2+ pitting edema. Rehab PT IP Eval Objective Appearance Patient Behavior Appropriate Patient Orientation Person,Place,Time Difficulty following instructions none Speech Pattern Clear Ambulation Patient Able to Ambulate Yes Ambulation Observation IP General Gait Pattern Observation Wide Based Gait,Shuffling Step Ambulation Distance (feet) 5 Ambulation Assistive Device Rolling Walker Ambulation Ability Minimal x 1 (25% assist) Balance Ability to Arise Able, uses arms to help Sitting Balance Steady, safe Standing Balance Steady, wide stance Dynamic Sitting Balance Ability Good Dynamic Standing Balance Ability Fair Transfers Bed Transfer Ability Contact Guard/Hand Hold Chair Transfer Ability Minimal x 1 (25% assist) Sit to Stand Bed Transfer Ability Minimal x 1 (25% assist) Sit to Stand Chair Transfer Ability Minimal x 1 (25% assist) ROM All Extremities PT ROM Status WFL MMT All Extremities PT MMT WFL Rehab PT IP prob,goals,plan Problems Date of Evaluation: 05/02/21 PT IP Problems Bed Mobility,Transfers,Gait Rehab Potential Rehab Potential Good Plan PT Intervention Plan Bed Mobility,Transfers,Gait, Therapeutic Exercise PT Plan Frequency BID Duration LOS Discharge Goals Bed Transfer Ability Supervision/Stand by Sit to Stand Chair Transfer Ability Contact Guard/Hand Hold Ambulation Assistive Device Rolling Walker Ambulation Distance (feet) 25 Discharge Plan PT Discharge Plan Pt is currently most appropriate for rehab placement once medically stable. G -code Required No Eval Complexity Eval Charge Codes
[2021-05-02 12:05] LABS: POC Glucose,Bedside 95 (70-110)
[2021-05-02 12:50] LABS: POC Glucose,Bedside 153 (70-110)
--- NOTE | 2021-05-02 13:28 | HMH.PHAINT ---
MEDICATION RECONCILIATION COMPLETED ON PATIENT USING LIST FROM PCP OFFICE AND CALL TO [facility]. -NEAL ZAIDI, CAROLINED
[2021-05-02 13:36] VITALS: BMI 22.6
--- NOTE | 2021-05-02 13:58 | DIET.NUTRFU ---
Addendum entered by Denise Patel 05/05/21 13:01: PO intakes 25%. Pt tolerating soft/bland diet, appetite remains poor and she continues to c/o painful swallowing. BG remain moderate- avg. 130, will continue diet without carbohydrate restriction. Supplements increased to TID. Original Note: Nutritional assessment, IP/consult completed, pt with severe protein calorie malnutrition. Pt determined to be malnourished by RD at last recent H stay and has unfortunately continued to lose weight mostly rt her painful swallowing which caused her to have minimal PO intake for >1week. She has lost 8% BW in the past month, 15% in the last 6m. Pt states her swallowing has improved, did observe pt tolerating full liquids without s/s dysphagia. Pt is a well controlled diabetic, will continue diet without sugar restriction at this time to prioritize intakes, BG WNL, will monitor and alter as indicated. Pt has been provided with diet education/counseling for malnutrition rt cancer, dysphagia and other nutritional side effects treatment, hydration, and DM. BID supplements on diet order. Diet to advance as tolerated. Please assist with tray set up. Pt may have any additional snacks supplements desired/by RN offer. Will monitor to alter nutritional care plan as indicated.
--- NOTE | 2021-05-02 14:37 | PC.NURSE ---
SHE IS AOX4, FOLLOW COMMANDS, WAS UP TO CHAIR FOR 3 HOURS THIS MORNING BUT RETURNED TO BED AFTER PT/OT SAW HER. SHE HAS TOLERATED FLD WELL, ABD IS SOFT ROUND AND NON-TENDER, SHE DENIES N/D, OSTOMY IN PLACE C/D/I, SHE HAS BEEN MEDICATED WITH SCHEDULED TORADOL PER MAR WIT NO C/O PAIN FOLLOWING ADMIN, HER VSS T/O SHIFT.
[2021-05-02 15:33] VITALS: BP 163/78; PULSE 98; TEMP 36.9; O2SAT 98
[2021-05-02 20:00] VITALS: BP 142/76; PULSE 90; RESP 18; TEMP 36.9; O2SAT 97
[2021-05-03 04:00] VITALS: BP 122/72; PULSE 70; RESP 18; TEMP 36.6; O2SAT 96
--- NOTE | 2021-05-03 04:21 | PC.NURSE ---
shsift summary pt is alert and oriented X4. pt has been up to chair for an hour. pt has stated she wants to go to a senior care or assisted living facility. pt refused to take her potassium due to it making her stomach feel like it was burning, application penetration tester MD was notified of refusal at 2044. pt denies any nausea, vomiting, or diarrhea. no acute changes will continue to monitor.
[2021-05-03 05:00] VITALS: BMI 22.8
[2021-05-03 07:34] VITALS: BP 116/62; PULSE 78; RESP 17; TEMP 36.8; O2SAT 99
[2021-05-03 08:00] VITALS: RESP 18
--- NOTE | 2021-05-03 08:04 | HMH.ACPN2 ---
Internal Medicine - PN: Subj *Date: 05/03/21 *Time: 08:04 Interval history: Patient has no complaints this morning. Labs are still pending as patient is a difficult stick. She is having less pain with swallowing. She would like to try something such as a scrambled egg. Exam Vital signs and Labs for Last 24 Hours: Temp Pulse Resp BP Pulse Ox 98.2 F 78 17 116/62 99 05/03/21 07:34 05/03/21 07:34 05/03/21 07:34 05/03/21 07:34 05/03/21 07:34 Laboratory Results - last 24 hr 05/02/21 04:59: POC Glucose 95 05/02/21 12:36: POC Glucose 153 H I & O for Last 24 hours: Intake & Output 04/30/21 05/01/21 05/02/21 05/03/21 11:59 11:59 11:59 11:59 Intake Total 570 / 570 1842 / 1842 Output Total 300 / 300 Balance 270 / 270 1842 / 1842 Weight 133 lb 3 oz 134 lb - Constitutional no acute distress - *Routine Respiratory Exam Present: CTA bilaterally - *Routine Cardiovascular Exam Present: RRR - *Routine Extremities Exam Present: edema 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 Category: Medical Code(s): C34.91 - Malignant neoplasm of unspecified part of right bronchus or lung (6) Diabetes mellitus type 2, controlled Status: Acute Qualifiers: Diabetes mellitus half-way insulin use: without half-way use Diabetes mellitus complication status: with neurologic complications Diabetes mellitus complication detail: with polyneuropathy Qualified Code(s): E11.42 - Type 2 diabetes mellitus with diabetic polyneuropathy Category: Medical Code(s): E11.9 - Type 2 diabetes mellitus without complications (7) Edema of both lower extremities Status: Acute Category: Medical Code(s): R60.0 - Localized edema - Assessment and plan all Dx Assessment and Plan for all problems:: 1. Advance diet 2. Patient will need SNF rehab for strengthening. One local facility has already declined excepting the patient. Care management to continue to attempt to find rehabilitation facility for the patient
--- NOTE | 2021-05-03 10:52 | PC.NURSE ---
CONTACTED MD FRICTION PAINT MACHINE TENDER DR DAVIES R/T CHANGE IN COGNITIVE STATUS. STAT CBCC,BMP,CALCIUM AND MAG ORDERED. PT VSS AT THIS TIME. NO FOCAL WEAKNESS NOTED. SHE IS ABLE TO ANSWER QUESTIONS AND IS AOX4. WILL CONTINUE TO MONITOR.
[2021-05-03 11:06] LABS: Basophils % 0.6 % (0.1-2.0); Eosinophils % 0.4 % (0.1-12.0); Hematocrit 28.1 % (37.0-47.0); Hemoglobin 8.9 g/dL (12.2-16.2); Lymphocytes # 0.5 K/mm3 (0.7-4.5); Lymphocytes % 18.2 % (10-50); Mean Corpuscular HGB Conc 31.7 g/dL (31.8-35.4); Mean Corpuscular Hemoglobin 28.5 pg (27.0-31.2); Monocytes # 0.2 K/mm3 (0.1-1.0); Neutrophils % 74.8 % (37.0-80.0); Platelet Count 245 K/mm3 (142-424); Red Blood Count 3.12 M/mm3 (4.20-5.40); Red Cell Distribution Width 20.9 % (11.5-17.5); White Blood Count 2.7 K/mm3 (4.8-10.8)
[2021-05-03 11:15] LABS: Chloride 104 mmol/L (98-107)
[2021-05-03 11:16] LABS: Potassium 3.7 mmoL/L (3.5-5.1); Sodium 136 mmol/L (136-145)
[2021-05-03 11:19] LABS: Anion Gap 4.7 mEq/L (5-15); Blood Urea Nitrogen 5 mg/dl (7-17); Calcium 7.8 mg/dl (8.4-10.2); Carbon Dioxide 31 mmol/L (22.0-30.0); Creatinine Clearance Estimated 41 mL/min (50-200); Estimated Glomerular Filt Rate 152 ml/min (>60); GFR (African American) 184 ML/MIN (>60); Glucose 110 mg/dl (74-100); Magnesium 1.4 mg/dl (1.6-2.3)
[2021-05-03 14:53] VITALS: BP 165/80; PULSE 105; RESP 17; TEMP 37.1; O2SAT 98
--- NOTE | 2021-05-03 15:19 | PC.NURSE ---
SHE IS AOX4, ABLE TO MAKE NEEDS KNOWN TO STAFF, SHE HAS C/O UPPER ESOPHAGEAL PAIN THIS SHIFT, SCHEDULED TORADOL ADMIN PER MAR WITH GOOD EFFECTIVENESS, SHE HAS NOT EATEN MUCH THIS SHIFT. STILL DRINKING FLUIDS, ABD IS SOFT AND NON-TENDER. PT COLOSTOMY EMPTIED THIS SHIFT. LUNGS ARE DIMINISHED T/O. SHE HAS ALSO C/O PAIN TO HER TAILBONE THAT SHE STATES IS AN ONGOING ISSUE. PT SAYS SHE DOES NOT WANT TO TAKE PO MEDICATIONS R/T TO HER DIFFICULTY SWALLOWING SO THEY WERE HELD AT PT REQUEST. . SHE HAS TOLERATED HER NYSTATIN AND MAGIC MOUTHWASH WELL THOUGH. PT DID HAVE AN EPISODE OF LETHARGY AND WEAKNESS THIS SHIFT. THIS HAS SINCE RESOLVED AND SHE APPEARS TO HAVE RETURNED TO BASELINE AND IS AWAKE AND ALERT. PT ASSEMBLER PING PONG TABLE HAVE REMAINED EQUAL BILATERALLY. ABLE TO MOVE ALL EXTREMITIES. AND SHE WAS ABLE TO TOLERATING AMBULATING TO THE BSC AND CHAIR. VSS AT THIS TIME.
--- NOTE | 2021-05-03 16:48 | PC.NURSE ---
PT IV STARTED LEAKING AND WAS REMOVED WHILE ATTEMPTING TO INSERT NEW IV PATIENT SAID THAT SHE DID NOT WANT A NEW ONE AT THIS TIME.
--- NOTE | 2021-05-03 18:15 | PC.NURSE ---
SPOKE WITH DR LEUNG REGARDING PT STATUS. ORDERED UA AND TO REVERT PT DIET TO FULL LIQUIDS. GAVE PERMISSION TO GIVE ONE TIME DOSE OF MAGIC MOUTHWASH FOR PT C/O ESOPHAGEAL PAIN. WHEN THIS RN RETURNED TO ROOM PT WAS NOTED TO BE ASLEEP. THIS RN ASKED PT IF SHE WAS STILL IN PAIN AND SHE DENIED PAIN AT THIS TIME. OTHER ORDERS PER MD CARRIED OUT. PT RESTING COMFORTABLY AT THIS TIME.
[2021-05-03 20:00] VITALS: BP 153/80; PULSE 100; RESP 18; TEMP 37.2; O2SAT 98
[2021-05-03 20:31] LABS: Appearance,Urine SL CLOUDY (Clear); Bilirubin,Urine Negative (Negative); Blood, Urine Negative (Negative); Color,Urine YELLOW (Yellow); Glucose,Urine (UA) Negative (Negative); Ketones,Urine TRACE (Negative); Leukocyte Esterase,Urine 1+ (Negative); Microscopic, Urine URINE MICROSCOPIC (MICROSCOPIC); Nitrate,Urine Negative (Negative); Protein,Urine Negative (Negative); Urobilinogen,Urine 0.2 EU/dl (0.2)
[2021-05-03 20:40] LABS: Bacteria,Urine 2+ /lpf; Mucus,Urine 1+ /lpf; WBC,Urine 20-50 #/hpf (0-3)
[2021-05-03 20:41] LABS: POC Glucose,Bedside 134 (70-110)
[2021-05-03 20:41] LABS: POC Glucose,Bedside 131 (70-110)
--- NOTE | 2021-05-04 03:31 | PC.NURSE ---
Patient has been pleasant this evening. She is alert and oriented x4. At the beginning of the shift she had complaints of a sore throat. Patient was given medication per MAR as ordered, she refused her potassium suspension and her pill/tablet PO medications due to the pain. She is on scheduled toradol. Patient has rested well. A dressing was place on her tailbone area as she complained of it being sore. It is red but remains blanchable. She had a new IV placed in her LAC that is a 20gauge and LR @ 50 per . IV placed by Chely Whitlock. She has bilateral lower extremity +3 pitting edema. Patient is still very weak when ambulating to the bedside commode and requires assist x1. Colostomy noted on LLQ. She has had no other complaints throughout the shift then what is noted. Will continue to monitor. Call light is within reach and bed in lowest position.
[2021-05-04 04:15] VITALS: BMI 22.9
[2021-05-04 04:16] VITALS: BP 119/73; PULSE 89; RESP 20; TEMP 36.7; O2SAT 96
[2021-05-04 06:38] LABS: POC Glucose,Bedside 103 (70-110)
[2021-05-04 07:17] VITALS: BP 143/67; PULSE 91; RESP 17; TEMP 36.9; O2SAT 98
--- NOTE | 2021-05-04 07:55 | HMH.ACPN2 ---
Internal Medicine - PN: Subj *Date: 05/04/21 *Time: 07:55 Interval history: No acute events over the last 24 hours. Nursing did contact me yesterday regarding a perceived change in the patient's level of alertness. When asked about that this morning patient cannot give me any specifics. She does have some various complaints of mild discomfort in the neck and legs. Exam Vital signs and Labs for Last 24 Hours: Temp Pulse Resp BP Pulse Ox 98.5 F 91 H 17 143/67 H 98 05/04/21 07:17 05/04/21 07:17 05/04/21 07:17 05/04/21 07:17 05/04/21 07:17 Laboratory Results - last 24 hr 05/03/21 10:18: POC Glucose 131 H 05/03/21 10:58: WBC 2.7 L, RBC 3.12 L, Hgb 8.9 L, Hct 28.1 L, MCV 90.0, MCH 28.5, MCHC 31.7 L, RDW 20.9 H, Plt Count 245, MPV 9.0, Neut % (Auto) 74.8, Lymph % (Auto) 18.2, [place] % (Auto) 6.0, Eos % (Auto) 0.4, Baso % (Auto) 0.6, Neut # (Auto) 2.0, Lymph # (Auto) 0.5 L, [place] # (Auto) 0.2, Eos # (Auto) 0.0, Baso # (Auto) 0.0 05/03/21 10:58: Sodium 136, Potassium 3.7, Chloride 104, Carbon Dioxide 31 H, Anion Gap 4.7 L, BUN 5 L, Creatinine 0.40 L D, Estimated Creat Clear 41, Estimated GFR 152, Est GFR ( Amer) 184 D, Glucose 110 H, Calcium 7.8 L, Magnesium 1.4 L 05/03/21 19:54: Urine Color Yellow, Urine Appearance Sl cloudy, Urine pH 7.0, Ur Specific [place] 1.020, Urine Protein Negative, Urine Glucose (UA) Negative, Urine Ketones Trace, Urine Blood Negative, Urine Nitrate Negative, Urine Bilirubin Negative, Urine Urobilinogen 0.2, Ur Leukocyte Esterase 1+ A, Urine WBC 20-50, Ur Squamous Epith Cells 5-10, Urine Bacteria 2+, Urine Mucus 1+ 05/03/21 20:32: POC Glucose 134 H 05/04/21 06:29: POC Glucose 103 I & O for Last 24 hours: Intake & Output 05/01/21 05/02/21 05/03/21 05/04/21 11:59 11:59 11:59 11:59 Intake Total 570 / 570 1842 / 1842 783 / 783 Output Total 300 / 300 200 / 200 Balance 270 / 270 1842 / 1842 583 / 583 Weight 133 lb 3 oz 134 lb 134 lb 5 oz Narrative: Patient looks comfortable sitting up in bed. Lungs are clear. Heart has a regular rate and rhythm. Abdomen is soft with a functioning colostomy. Lower extremities have 3+ edema Urinalysis had positive leukocyte Estrace with 20-50 white blood cells, 5-10 squamous cells. 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 Category: Medical Code(s): C34.91 - Malignant neoplasm of unspecified part of right bronchus or lung (6) Diabetes mellitus type 2, controlled Status: Acute Qualifiers: Diabetes mellitus terminal clerk insulin use: without terminal clerk use Diabetes mellitus complication status: with neurologic complications Diabetes mellitus complication detail: with polyneuropathy Qualified Code(s): E11.42 - Type 2 diabetes mellitus with diabetic polyneuropathy Category: Medical Code(s): E11.9 - Type 2 diabetes mellitus without complications (7) Edema of both lower extremities Status: Acute Category: Medical Code(s): R60.0 - Localized edema (8) UTI (urinary tract infection) Status: Suspected Category: Medical Code(s): N39.0 - Urinary tract infection, site not specified - Assessment and plan all Dx Assessment and Plan for all problems:: 1. Advance diet to a soft bland diet. Continue Magic mouthwash 4 times daily 2. Start IV Rocephin for suspected UTI while awaiting culture 3. Up with assistance, care management to work on placement for SNF shor
[2021-05-04 07:57] LABS: Anion Gap 4.8 mEq/L (5-15); Blood Urea Nitrogen 8 mg/dl (7-17); Carbon Dioxide 29 mmol/L (22.0-30.0); Chloride 105 mmol/L (98-107); Creatinine Clearance Estimated 41 mL/min (50-200); Estimated Glomerular Filt Rate 152 ml/min (>60); GFR (African American) 184 ML/MIN (>60); Glucose 104 mg/dl (74-100); Potassium 3.8 mmoL/L (3.5-5.1); Sodium 135 mmol/L (136-145)
[2021-05-04 08:20] LABS: Basophils % 0.4 % (0.1-2.0); Eosinophils # 0.1 K/mm3 (0.0-0.4); Eosinophils % 1.4 % (0.1-12.0); Hematocrit 29.1 % (37.0-47.0); Hemoglobin 9.6 g/dL (12.2-16.2); Lymphocytes # 0.9 K/mm3 (0.7-4.5); Lymphocytes % 20.6 % (10-50); Mean Corpuscular HGB Conc 32.9 g/dL (31.8-35.4); Mean Corpuscular Hemoglobin 28.9 pg (27.0-31.2); Mean Corpuscular Volume 87.9 fl (81-99); Mean Platelet Volume 9.1 fl (7.4-10.4); Monocytes # 0.3 K/mm3 (0.1-1.0); Neutrophils # 2.9 K/mm3 (1.8-7.8); Neutrophils % 69.5 % (37.0-80.0); Platelet Count 287 K/mm3 (142-424); Red Blood Count 3.31 M/mm3 (4.20-5.40); Red Cell Distribution Width 21.2 % (11.5-17.5); White Blood Count 4.2 K/mm3 (4.8-10.8)
--- NOTE | 2021-05-04 09:34 | PC.NURSE ---
PT STATES THAT SHE IS UNABLE TO SWALLOW MEDICATIONS IN CAPSULE OR PILL FORM R/T SEVERE ESOPHAGEAL PAIN.
[2021-05-04 12:20] LABS: POC Glucose,Bedside 118 (70-110)
[2021-05-04 15:11] VITALS: BP 133/73; PULSE 101; RESP 17; TEMP 37; O2SAT 98
--- NOTE | 2021-05-04 16:19 | PC.NURSE ---
SHE IS AOX4, HAS BEEN UP TO CHAIR AT TIMES THIS SHIFT. REPOSITIONS HERSELF INDEPENDENTLY IN THE BED. SHE REMAINS UNABLE TO TOLERATE TAKING PO MEDICATIONS. DIS TOLERATE MEALS BETTER THIS SHIFT. SCRAMBLED EGG FOR BREAKFAST, GRILLED CHEESE FOR LUNCH. PT PREFERS TO TAKE MOUTHWASH RIGHT BEFORE EATING. FAMILY HAS REMAINED AT BESIDE FOR MOST OF SHIFT. VSS STABLE T/O SHIFT. NO NEEDS AT THIS TIME WILL CONTINUE TO MONITOR.
[2021-05-04 20:00] VITALS: BP 118/79; PULSE 121; RESP 20; TEMP 36.9; O2SAT 99
[2021-05-04 21:10] LABS: POC Glucose,Bedside 140 (70-110)
--- NOTE | 2021-05-05 04:52 | PC.NURSE ---
Patient is alert and oriented x4. Patient has rested okay throughout the night. Patient requested that her lights remain on throughout the night. Patient still refusing all PO medication in tablet/capsule form. Patient refused to take potassium suspension. Patient awoke around 0130 during this time in a sweat. Patient reported hearing voices , when asked what the voices where saying she stated she didn't know and that they where kids voices and her sister in law . Patient then stated I am going batty . Vital signs are stable. Patient got up to the bed side commode to void. Assisted x2 back to bed. Gown was changed. Patient has since rested throughout the night. She has had c/o of discomfort in her throat during the night. Will continue to monitor. Call light within reach, bed in lowest position.
[2021-05-05 04:53] VITALS: BP 128/71; PULSE 95; RESP 12; TEMP 36.8; O2SAT 98
[2021-05-05 05:00] VITALS: BMI 22.9
[2021-05-05 06:28] LABS: POC Glucose,Bedside 113 (70-110)
--- NOTE | 2021-05-05 07:24 | P.PN_ITS ---
Internal Medicine - PN: Subj *Date: 05/05/21 *Time: 07:24 Interval history: No acute events over the last 24 hours. Patient continues to complain of throat pain when swallowing. Exam Vital signs and Labs for Last 24 Hours: Temp Pulse Resp BP Pulse Ox 98.2 F 95 H 12 128/71 98 05/05/21 04:53 05/05/21 04:53 05/05/21 04:53 05/05/21 04:53 05/05/21 04:53 Laboratory Results - last 24 hr 05/04/21 07:22: Sodium 135 L, Potassium 3.8, Chloride 105, Carbon Dioxide 29, Anion Gap 4.8 L, BUN 8 D, Creatinine 0.40 L, Estimated Creat Clear 41, Estimated GFR 152, Est GFR ( Amer) 184, Glucose 104 H, Calcium 8.0 L 05/04/21 08:10: WBC 4.2 L D, RBC 3.31 L, Hgb 9.6 L, Hct 29.1 L, MCV 87.9, MCH 28.9, MCHC 32.9, RDW 21.2 H, Plt Count 287, MPV 9.1, Neut % (Auto) 69.5, Lymph % (Auto) 20.6, [place] % (Auto) 8.0, Eos % (Auto) 1.4, Baso % (Auto) 0.4, Neut # (Auto) 2.9, Lymph # (Auto) 0.9, [place] # (Auto) 0.3, Eos # (Auto) 0.1, Baso # (Auto) 0.0 05/04/21 12:12: POC Glucose 118 H 05/04/21 20:21: POC Glucose 140 H 05/05/21 06:20: POC Glucose 113 H I & O for Last 24 hours: Intake & Output 05/02/21 05/03/21 05/04/21 05/05/21 11:59 11:59 11:59 11:59 Intake Total 570 / 570 1841 783 / 783 410 / 410 Output Total 300 / 300 200 / 200 Balance 270 / 270 1841 583 / 583 410 / 410 Weight 133 lb 3 oz 134 lb 134 lb 5 oz 134 lb 4.995 oz Microbiology Reports for the Last 24 Hours: Microbiology 05/03/21 19:54 Urine,Clean Catch Urine Culture - Preliminary Narrative: Patient looks comfortable. Lungs remain clear. Heart has a regular rate and rhythm. 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 Category: Medical Code(s): C34.91 - Malignant neoplasm of unspecified part of right bronchus or lung (6) Diabetes mellitus type 2, controlled Status: Acute Qualifiers: Diabetes mellitus termite control representative insulin use: without termite control representative use Diabetes mellitus complication status: with neurologic complications Diabetes mellitus complication detail: with polyneuropathy Qualified Code(s): E11.42 - Type 2 diabetes mellitus with diabetic polyneuropathy Category: Medical Code(s): E11.9 - Type 2 diabetes mellitus without complications (7) Edema of both lower extremities Status: Acute Category: Medical Code(s): R60.0 - Localized edema (8) UTI (urinary tract infection) Status: Suspected Category: Medical Code(s): N39.0 - Urinary tract infection, site not specified - Assessment and plan all Dx Assessment and Plan for all problems:: 1. Care management to work on placement of patient for short-term rehab.
--- NOTE | 2021-05-05 07:55 | SW/DCPLANNER ---
SPOKE WITH DAUGHTER ON WEDNESDAY AFTERNOON LATE REGARDING DISCHARGE PLANNING FOR THIS PATIENT: DAUGHTER STATED SHE COULD NOT TAKE CARE OF HER MOTHER ANY LONGER AND WISHES FOR PLACEMENT FOR HER... I EXPLAINED TO HER THAT SHE IS IN AN OBS STATUS AND SHE WOULD EITHER HAVE TO PAY PRIVATE PAY OR DO MEDICAID PENDING...I HAVE MADE A PACKET THIS MORNING AND WILL SPEAK WITH DAUGHTER AGAIN TO SEE WHERE SHE WISHES TO GO...PATIENT IS READY FOR A DISPOSITION...
[2021-05-05 08:00] VITALS: BP 132/76; PULSE 94; RESP 28; TEMP 36.6; O2SAT 98
--- NOTE | 2021-05-05 11:09 | P.CONPHA_ITS ---
- Pharmacy Consult Allergies and ADEs:: Allergies Allergy/AdvReac Type Severity Reaction Status Date / Time No Known Allergies Allergy Verified 03/06/21 10:15 Home Medications:: Home Medications Medication Instructions Recorded Confirmed Type gabapentin 100 mg capsule 100 mg PO QID cap 05/23/18 05/02/21 History Aspirin 81 mg PO DAILY 07/25/18 05/02/21 History folic acid 1 mg tablet 1 mg PO DAILY 09/24/20 05/02/21 History Ascorbic Acid [Vitamin C] 1,000 mg PO DAILY 04/09/21 05/02/21 History Cholecalciferol (Vitamin D3) 1,000 unit PO DAILY 04/09/21 05/02/21 History [Vitamin D3 1,000 Unit Cap] Iron Polysaccharide Complex [Pro 180 mg PO DAILY 04/09/21 05/02/21 History Fe] Multivit-Min/Iron/Folic/[id number] 1 each PO DAILY 04/09/21 05/02/21 History [Hair, Skin and Nails Tablet] [place]-3 Fatty Acids/Fish Oil 1 each PO DAILY 04/09/21 05/02/21 History [[place] 3 Fish Oil Softgel] Primidone 50 mg PO HS 04/09/21 05/02/21 History Vitamin E Acid Succinate [Vitamin 400 units PO DAILY 04/09/21 05/02/21 History E 400 Unit Tab] metHOTREXate sodium [metHOTREXate 17.5 mg PO WEEKLY 04/09/21 05/02/21 History 2.5mg Tablet] Hydrocodone/Acetaminophen 1 tab PO QIDP PRN 05/02/21 05/02/21 History [Hydrocodone-Acetamin 10-325 mg] Metformin HCl [Metformin 850mg 850 mg PO BIDWM 05/02/21 05/02/21 History Tablet] lisinopriL [Zestril 20mg tab] 20 mg PO DAILY 05/02/21 05/02/21 History Height: 1.63 m Weight: 60.923 kg Laboratory Results:: Laboratory Results - last 24 hr 05/04/21 12:12: POC Glucose 118 H 05/04/21 20:21: POC Glucose 140 H 05/05/21 06:20: POC Glucose 113 H Medical History: Reports:: Cancer (lung, colon), Diabetes Mellitus Type 2, Hyperlipidemia, Hypertension Denies:: Diabetes Mellitus Type 1, Internal Pacemaker, Lung Disease, MRSA, Seizures 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 Category: Medical Code(s): C34.91 - Malignant neoplasm of unspecified part of right bronchus or lung (6) Diabetes mellitus type 2, controlled Status: Acute Qualifiers: Diabetes mellitus ferry terminal agent insulin use: without correction use Diabetes mellitus complication status: with neurologic complications Diabetes mellitus complication detail: with polyneuropathy Qualified Code(s): E11.42 - Type 2 diabetes mellitus with diabetic polyneuropathy Category: Medical Code(s): E11.9 - Type 2 diabetes mellitus without compli cations (7) Edema of both lower extremities Status: Acute Category: Medical Code(s): R60.0 - Localized edema (8) UTI (urinary tract infection) Status: Suspected Category: Medical Code(s): N39.0 - Urinary tract infection, site not specified
[2021-05-05 16:00] VITALS: BP 133/68; PULSE 97; RESP 24; TEMP 37; O2SAT 99
[2021-05-05 16:13] LABS: POC Glucose,Bedside 118 (70-110)
--- NOTE | 2021-05-05 17:11 | PC.NURSE ---
Pt has been pleasant and cooperative this shift. A&O X4. No complaints of pain. Pt is on room air with sats. >90%. Lungs CTA. 2+ pitting edema noted to BLE. Reddened area noted to coccyx and covered with a pressure-relief dressing. Pt ambulates independently in the room and uses the BSC to void clear, yellow urine without issue. Colostomy is present. Appetite is poor and pt eats about 25%of all meals. 20 G peripheral IV in the LT AC is patent and SL. VSS. Call light within reach. Will continue to monitor.
[2021-05-05 20:00] VITALS: BP 127/72; PULSE 99; RESP 18; TEMP 36.9; O2SAT 96
[2021-05-05 20:20] LABS: POC Glucose,Bedside 139 (70-110)
[2021-05-06 00:15] VITALS: RESP 16
[2021-05-06 04:00] VITALS: BP 111/79; PULSE 79; RESP 16; TEMP 36.9; O2SAT 98
--- NOTE | 2021-05-06 04:04 | PC.NURSE ---
Patient is alert and oriented. She has been pretty restless tonight, she requests to leave the lights on dim throughout the night. At the beginning of shift she required a new IV due to her current one leaking. She has a 20 in the RAC that is SL. She requested to get up to the chair because she couldn't get comfortable. She had complaints of pain and was given Morphine per DEC. Still has refused PO medications other then suspensions. Will continue to monitor. Call light in reach.
[2021-05-06 04:24] VITALS: BMI 22.9
[2021-05-06 06:40] LABS: POC Glucose,Bedside 112 (70-110)
--- NOTE | 2021-05-06 07:02 | HMH.ACPN2 ---
Internal Medicine - PN: Subj *Date: 05/06/21 *Time: 07:02 Interval history: No acute events. Patient required a new IV which caused some pain in her arm. She was restless overnight but cannot really explain why. Her daughter informs me that she spoke with the patient's oncologist who is recommended no further treatment for the cancer at this time as current circumstances would indicate progression and worsening of disease. Exam Vital signs and Labs for Last 24 Hours: Temp Pulse Resp BP Pulse Ox 98.4 F 79 16 111/79 98 05/06/21 04:00 05/06/21 04:00 05/06/21 04:00 05/06/21 04:00 05/06/21 04:00 Laboratory Results - last 24 hr 05/05/21 16:00: POC Glucose 118 H 05/05/21 19:54: POC Glucose 139 H 05/06/21 06:31: POC Glucose 112 H I & O for Last 24 hours: Intake & Output 05/03/21 05/04/21 05/05/21 05/06/21 11:59 11:59 11:59 11:59 Intake Total 1842 / 1842 783 / 783 530 / 530 480 / 480 Output Total 200 / 200 500 / 500 Balance 1842 / 1842 583 / 583 30 / 30 480 / 480 Weight 134 lb 134 lb 5 oz 134 lb 4.995 oz 134 lb 4.995 oz Microbiology Reports for the Last 24 Hours: Microbiology 05/03/21 19:54 Urine,Clean Catch Urine Culture - Preliminary Narrative: Patient is sitting up on the side of the bed. She is attempting to eat breakfast. Swallowing seems to create some right-sided chest discomfort. 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 Category: Medical Code(s): C34.91 - Malignant neoplasm of unspecified part of right bronchus or lung (6) Diabetes mellitus type 2, controlled Status: Acute Qualifiers: Diabetes mellitus rod finisher insulin use: without correction use Diabetes mellitus complication status: with neurologic complications Diabetes mellitus complication detail: with polyneuropathy Qualified Code(s): E11.42 - Type 2 diabetes mellitus with diabetic polyneuropathy Category: Medical Code(s): E11.9 - Type 2 diabetes mellitus without complications (7) Edema of both lower extremities Status: Acute Category: Medical Code(s): R60.0 - Localized edema (8) UTI (urinary tract infection) Status: Suspected Category: Medical Code(s): N39.0 - Urinary tract infection, site not specified - Assessment and plan all Dx Assessment and Plan for all problems:: 1. Had a discussion with the family regarding hospice and role they could plan patient's care. It is unclear how this may impact patient's transfer to SNF for rehab. Care management will be involved to assist with this process
[2021-05-06 07:05] VITALS: RESP 18
[2021-05-06 07:45] VITALS: BP 124/61; PULSE 109; RESP 18; TEMP 36.9; O2SAT 97
--- NOTE | 2021-05-06 09:37 | SW/DCPLANNER ---
Addendum entered by Olga Loganton 05/06/21 14:50: I have informed patients daughter of discharge. Daughter stated that she will come back to transport patient and sign all paperwork. Addendum entered by Olga Loganton 05/06/21 14:40: This patient has been accepted to [facility] per Tana. I have informed Radha with Hospice that this patient will discharge today. Additional COVID swab requested by [facility] is negative and has been faxed. I will inform family once they are home and available via phone (only has land line). The plan is for this patient to discharge to [facility] today under Hospice Care. Addendum entered by Olga Pace 05/06/21 11:29: A.D. with Hospice will be here to evaluate this patient at 1:30PM. Original Note: I spoke with Dr Solomon and patients daughter regarding discharge plans. Dr Solomon stated that family is interested in placement/Hospice services. Per daughters patients Oncologist has recommended no further treatment for this patient. I spoke with daughter via phone this morning: interested in Hospice and placement at [facility]. Patient information has been faxed to both [facility]ators: Tere will come evaluate this AM while daughter is present and information has been faxed to Tana with [facility]. I will continue to follow up with Hospice and [facility]. Dr Solomon has stated that patient is medically stable for discharge today.
[2021-05-06 11:45] LABS: POC Glucose,Bedside 141 (70-110)
--- NOTE | 2021-05-06 12:29 | PC.NURSE ---
PT IS RESTING IN BED WITH FAMILY IN THE ROOM. ALERT AND ORIENTED X4. PT STATES SHE IS ALWAYS IN PAIN AND SHE IS UNABLE TO EAT OR DRINK ANYTHING AT ALL UNLESS SHE HAS HER MAGIC MOUTHWASH RIGHT BEFORE A MEAL. PT HAS REFUSED ALL PO MEDICATIONS. PT STATED AT 1030 SHE WAS IN PAIN AND SHE WAS OFFERED HER PAIN PILL AND SHE REFUSED B/C SHE STATED IT HURT TO BAD TO SWALLOW. OFFERED TO CRUSH IT IN APPLESAUCE AND PT STILL REFUSED. PT REFUSED PHYSICAL THERAPY THIS MORNING. 2+ PITTING EDEMA NOTED TO BLE. HOSPICE WILL COME TO SEE PT AND FAMILY THIS AFTERNOON. WILL CONTINUE TO MONITOR.
[2021-05-06 13:23] LABS: Coronavirus 19, PCR Not Detected (NotDetected); Influenza A, PCR Not Detected (NotDetected); Influenza B, PCR Not Detected (NotDetected)
--- NOTE | 2021-05-06 14:36 | HMH.DCSUM ---
General - General Admission date:: 05/01/21 Discharge date: 05/06/21 HPI HPI: 85-year-old female presented to the emergency department due to weakness associated with poor p.o. 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 Patient's last treatment was April 18 when she finished her course of radiation therapy. She has had progressive increase in pain associated with swallowing to the point where she is now afraid or unable to swallow due to the pain. Patient has been trying to use viscous lidocaine at home but tells me she has been swishing and spitting the medicine as opposed to swallowing the medicine. She presented to the ER with this complaint. She was given a GI cocktail which did improve her pain briefly. Past medical history is significant for partial gastrectomy secondary to gastric cancer, and colon cancer Hospital Course Hospital Course: Patient was admitted for correction of hypokalemia and pain control. Hypokalemia was corrected within 48 hours of admit with IV potassium replacement. Patient refused oral replacement due to pain and esophageal irriation. Radiation esophagitis was treated with Magic Mouthwash(MBX) AC and HS. Shadi was empirically started on Nystatin but no thrush or rony was visualized. IV and later oral morphine were used for pain control. Diet was soft/bland diet to avoid esophageal irriation. Patient is weak from Stage III Lung Cancer. PT evaluated patient and recommended snf for rehab. During hospitalization patient's family remained in contact with Oncology who colin suggested Hospice as it was unlikely patient would tolerate further treatments. Patient was accepted at [facility] and will be followed by Hospice. Shannan has history of DM. Due to weigh loss, poor appetite all DM meds have been stopped. Objective Vital signs: Temp Pulse Resp BP Pulse Ox 98.4 F 109 H 18 124/61 97 05/06/21 07:45 05/06/21 07:45 05/06/21 07:45 05/06/21 07:45 05/06/21 07:45 Results Labs on day of discharge: Labs from last 24 hours 05/06/21 05/06/21 05/06/21 12:53 11:38 06:31 POC Glucose 141 H 112 H SARS-CoV-2 (PCR) Not detected Influenza A Untype (PCR) Not detected Influenza Type B (PCR) Not detected 05/05/21 05/05/21 19:54 16:00 POC Glucose 139 H 118 H SARS-CoV-2 (PCR) Influenza A Untype (PCR) Influenza Type B (PCR) DS: Diagnosis - Discharge Diagnosis (1) Radiation-induced esophagitis Status: Acute (2) Hypokalemia Status: Acute (3) Odynophagia Status: Acute (4) Protein-calorie malnutrition, mild Status: Acute (5) 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 (6) Diabetes mellitus type 2, controlled Status: Acute (7) Edema of both lower extremities Status: Acute (8) UTI (urinary tract infection) Status: Suspected Discharge Plan - Patient Discharge Instructions ACTIVITY: Continue current activity DIET: continue same diet Patient Instructions: DI for Hypokalemia, DI for Esophageal Dysphagia - Follow up Plan Disposition: [facility] Condition at discharge:: Stable Home Medications: Home Medications Medication Instructions Recorded Confirmed Type gabapentin 100 mg capsule 100 mg PO QID cap 05/23/18 05/02/21 History Aspirin 81 mg PO DAILY 07/25/18 05/02/21 History folic acid 1 mg tablet 1 mg PO DAILY 09/24/20 05/02/21 History Ascorbic Acid [Vitamin C] 1,000 mg PO DAILY 04/09/21 05/02/21 History Cholecalciferol (Vitamin D3) 1,000 unit PO DAILY 04/09/21 05/02/21 History [Vitamin D3 1,000 Unit Cap] Iron Polysaccharide Complex [Pro 180 mg PO DAILY 04/09/21 05/02/21 History Fe] Multivit-Min/Iron/Folic/[id number] 1 each PO DAILY 04/09/21 05/02/21 History [Hair, Skin and Nails Tablet] [place]-3 Fatty Acids/Fish Oil 1 each PO DAILY 04/09/21 05/02/21 History [[place] 3
[2021-05-06 15:03] VITALS: BP 123/87; PULSE 100; RESP 18; TEMP 36.8; O2SAT 97
== END 2021-05-06 17:25 | disposition hospice, inpatient (51) ==
LOC: ER 19:51 → 2ND 20:41
PROVIDERS: Emergency Medicine; Admitting Provider Internal Medicine Adolescent Medicine; Emergency Provider Student in an Organized Health Care Education/Training Program; PCP Family Medicine; Visit Provider Family Medicine
DX: E87.6 Hypokalemia (principal); C34.91 Malignant neoplasm of unspecified part of right bronchus or lung; E44.1 Mild protein-calorie malnutrition; Z68.22 Body mass index [BMI] 22.0-22.9, adult; E11.9 Type 2 diabetes mellitus without complications; K20.80 Other esophagitis without bleeding; Y84.2 Radiological procedure and radiotherapy as the cause of abnormal reaction of the patient, or of later complication, without mention of misadventure at the time of the procedure; Z79.899 Other long term (current) drug therapy
CPT/HCPCS: 36415; 71045; 80048; 80053; 81001; 82962; 83735; 85025; 87086; 93005; 96365; 96375; 97116; 97162; 97530; 99284; 99291; G0378; U0003

== ENCOUNTER 2021-06-01 15:21 | Emergency (ER) | payer OTHER, MEDICARE, MEDICAID, SELFPAY ==
[2021-06-01 15:21] VITALS: BP 155/72; PULSE 85; RESP 16; TEMP 38.1; O2SAT 98; BMI 24.0
--- NOTE | 2021-06-01 15:27 | XR_ITS ---
PROCEDURE INFORMATION: Exam: XR Chest Exam date and time: 06/01/2021 3:27 PM Age: 85 years old Clinical indication: Pain; Chest pressure TECHNIQUE: Imaging protocol: XR of the chest. Views: 1 view. COMPARISON: CR XR CHEST PORTABLE 05/01/2021 6:15 PM FINDINGS: Lungs: Mass in the right upper lobe. On the prior study May 01 the mass was in the left upper lobe. It is possible that one of these chest x-rays was mislabeled according side. Recommend chest CT further evaluation of the mass. Opacities in what is labeled right hemithorax may represent atelectasis or pneumonia.. Pleural spaces: There may be pleural effusion on the side of the mass. Heart/Mediastinum: Unremarkable. No cardiomegaly. Bones/joints: Anterior cervical fusion IMPRESSION: 1. Mass in the right upper lobe. On the prior study May 01 the mass was in the left upper lobe. It is possible that one of these chest x-rays was mislabeled according side. Recommend chest CT further evaluation of the mass. 2. Opacities in what is labeled right hemithorax may represent atelectasis or pneumonia.. 3. There may be pleural effusion on the side of the mass.
--- NOTE | 2021-06-01 15:34 | ECG_ITS ---
APPROVED REPORT Exam: Resting ECG HR:84 bpm ECG Measurements Heart Rate 84 AXES MI 130 P 47 QRSd 84 QRS 31 QT 394 T 220 QTc 465 Conclusion Normal sinus rhythm with sinus arrhythmia ST & Marked T wave abnormality, consider anterolateral ischemia Abnormal ECG Electronically signed by : Jerrell Reynolds, 06/01/2021 20:39:19
[2021-06-01 15:51] LABS: Basophils % 0.1 % (0.1-2.0); Eosinophils # 0.1 K/mm3 (0.0-0.4); Eosinophils % 1.1 % (0.1-12.0); Hematocrit 32.3 % (37.0-47.0); Hemoglobin 10.2 g/dL (12.2-16.2); Lymphocytes # 0.7 K/mm3 (0.7-4.5); Lymphocytes % 8.7 % (10-50); Mean Corpuscular HGB Conc 31.6 g/dL (31.8-35.4); Mean Corpuscular Hemoglobin 29.2 pg (27.0-31.2); Mean Corpuscular Volume 92.4 fl (81-99); Mean Platelet Volume 8.4 fl (7.4-10.4); Monocytes # 0.3 K/mm3 (0.1-1.0); Monocytes % 4.3 % (1.7-9.3); Neutrophils # 6.6 K/mm3 (1.8-7.8); Neutrophils % 85.8 % (37.0-80.0); Platelet Count 294 K/mm3 (142-424); Red Blood Count 3.49 M/mm3 (4.20-5.40); Red Cell Distribution Width 17.7 % (11.5-17.5); White Blood Count 7.7 K/mm3 (4.8-10.8)
[2021-06-01 15:53] LABS: MANUAL DIFFERENTIAL MANUAL DIFFERENTIAL (MANUAL DIFF)
[2021-06-01 16:00] VITALS: BP 151/70; PULSE 83; RESP 16; O2SAT 96
[2021-06-01 16:02] LABS: Chloride 97 mmol/L (98-107); Potassium 4.3 mmoL/L (3.5-5.1); Sodium 130 mmol/L (136-145)
--- NOTE | 2021-06-01 16:02 | CT_ITS ---
PROCEDURE INFORMATION: Exam: CT Abdomen And Pelvis With Contrast Exam date and time: 06/01/2021 4:02 PM Age: 85 years old Clinical indication: Abdominal pain TECHNIQUE: Imaging protocol: Computed tomography of the abdomen and pelvis with contrast. Radiation optimization: All CT scans at this facility use at least one of these dose optimization techniques: automated exposure control; mA and/or kV adjustment per patient size (includes targeted exams where dose is matched to clinical indication); or iterative reconstruction. Contrast material: ISOVUE; Contrast volume: 75 ml; Contrast route: IV; COMPARISON: CT ANGIO ABDOMEN/FEMORAL 09/16/2020 11:14 AM FINDINGS: Lungs: Left total hip replacement consolidation in the lower lobes may represent atelectasis or pneumonia. Pleural spaces: Moderate to large bilateral pleural effusions.. Liver: Multiple enhancing masses in the right lobe of the liver consistent with metastatic disease.. 4 cm complex mass anterior to the liver series 3, image 57 most likely represents metastatic disease.. Gallbladder and bile ducts: Normal. No calcified stones. No ductal dilation. Pancreas: Pancreatic atrophy Spleen: Normal. No splenomegaly. Adrenal glands: Normal. No mass. Kidneys and ureters: Normal. No hydronephrosis. Stomach and bowel: The cecum is on a long mesentery and is position in the posterior aspect of the pelvis. Consequently the appendix is not seen well. If acute appendicitis is suspected clinically, recommend repeat study with oral contrast after oral contrast reaches the ostomy. Appendix: See Stomach and bowel finding. Intraperitoneal space: Unremarkable. No free air. No significant fluid collection. Vasculature: Unremarkable. No abdominal aortic aneurysm. Lymph nodes: Unremarkable. No enlarged lymph nodes. Urinary bladder: Unremarkable as visualized. Reproductive: 5 cm cystic structure posterior pelvis may represent right ovarian cyst or mesenteric cyst.. Bones/joints: Broad-based disc bulge, facet hypertrophy, and ligament hypertrophy at L4/L5 consistent with spinal stenosis. . 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 5.5 cm Septated cystic mass posterior pelvis. (Series 3, image 107.). This may represent unopacified bowel loops or abscess or metastatic lesion.. IMPRESSION: 1. Moderate to large bilateral pleural effusions.. 2. Multiple enhancing masses in the right lobe of the liver consistent with metastatic disease.. 3. 4 cm complex mass anterior to the liver series 3, image 57 most likely represents metastatic disease.. 4. Left lower quadrant ostomy with peristomal hernia.. 5. The cecum is on a long mesentery and is positioned in the posterior aspect of the pelvis. Consequently the appendix is not seen well. If acute appendicitis is suspected clinically, recommend repeat study with oral contrast after oral contrast reaches the ostomy. 6. 5.5 cm Septated cystic mass posterior pelvis. (Series 3, image 107.). This may represent unopacified bowel loops or abscess or metastatic lesion.. 7. Broad-based disc bulge, facet hypertrophy, and ligament hypertrophy at L4/L5 consistent with spinal stenosis. . 8. 5 cm cystic structure posterior pelvis may represent right ovarian cyst or mesenteric cyst.. THIS REPORT CONTAINS FINDINGS THAT MAY BE CRITICAL TO PATIENT CARE. The findings were verbally communicated via telephone conference with PAULINE CRAWFORD at 5:17 PM EDT on 06/01/2021. The findings were acknowledged and understood. Dr Crawford is worried about acute appendicitis
[2021-06-01 16:03] LABS: Lymphocytes % 8 % (10-50); Monocytes % 4 % (2-9); Neutrophils % 88 % (42-76); Platelet Estimate Normal; RBC Morphology Normal; Total Cells Counted 100
--- NOTE | 2021-06-01 16:03 | [facility].EDABDPAI ---
ED Disposition Clinical Impression: Stage IV squamous cell carcinoma of lung, Liver metastasis, Metastatic cancer to intra-abdominal lymph nodes Disposition: Home, Self-Care Condition on Discharge: Good Instructions: DI for Acute Abdominal Pain Additional Instructions: Continue home medication at the shelter. Pain controlled under the direction of her primary care physician. Referrals: Jerrell Solomon MD [Primary Care Provider] - - Critical Care Critical Care Time: No Attestation: On 06/01/21, the high probability of a clinically significant, sudden or life threatening deterioration of the following system(s) required my full and direct attention, intervention and personal management. The time I documented below is in addition to time spent performing reported procedures but includes the following listed in this critical care notation. Medical Decision Making - Medical Records MR Comment: CT scan of the abdomen and pelvis and chest x-ray shows stage IV liver cancer. She is at shelter taking morphine to control the pain. There was no signs of appendicitis. I talked to the family and they agreed to go back to shelter and continue home medications, in addition to morphine to control the pain. Should be under hospice care. - Antonio Inquiry Pt receiving controlled substance: No Antonio was queried for this patient: No Vital Signs: 06/01/21 15:21 Temperature 100.5 F H Temperature Source Oral Pulse Rate [Radial] 85 Respiratory Rate 16 Blood Pressure [Right Arm] 155/72 H Blood Pressure Mean [Right Arm] 99 Blood Pressure Position [Right Arm] Sitting 02 Sat by Pulse Oximetry 98 Oxygen Delivery Method Room Air - Lab Data Lab Results 06/01/21 15:30: WBC 7.7, RBC 3.49 L, Hgb 10.2 L, Hct 32.3 L, MCV 92.4, MCH 29.2, MCHC 31.6 L, RDW 17.7 H, Plt Count 294, MPV 8.4, Neut % (Auto) 85.8 H, Lymph % (Auto) 8.7 L, [place] % (Auto) 4.3, Eos % (Auto) 1.1, Baso % (Auto) 0.1, Neut # (Auto) 6.6, Lymph # (Auto) 0.7, [place] # (Auto) 0.3, Eos # (Auto) 0.1, Baso # (Auto) 0.0, Total Counted 100, Neutrophils % (Manual) 88 H, Lymphocytes % (Manual) 8 L, Monocytes % (Manual) 4, Platelet Estimate Normal, RBC Morphology Normal 06/01/21 15:30: Sodium 130 L, Potassium 4.3, Chloride 97 L, Carbon Dioxide 34 H, Anion Gap 3.3 L, BUN 11, Creatinine 0.50 L, Estimated Creat Clear 43, Estimated GFR 118, Est GFR ( Amer) 143, Glucose 103 H, Calcium 8.2 L, Total Bilirubin 0.8, AST 34, ALT 10 L, Alkaline Phosphatase 242 H, Troponin I 0.01, Total Protein 5.5 L, Albumin 2.3 L, Globulin 3.2, Albumin/Globulin Ratio 0.7 L, Amylase < 30 L, Lipase < 10 L 06/01/21 15:30: Lactate 1.0 06/01/21 17:25: SARS-CoV-2 (PCR) Not detected, Influenza A Untype (PCR) Not detected, Influenza Type B (PCR) Not detected Result diagrams: 06/01/21 15:30 06/01/21 15:30 Orders (Tests/Meds): ED MEDICATIONS Discontinued Medications Generic Name Dose Route Start Last Admin Trade Name Freq PRN Reason Stop Dose Admin Iopamidol 75 ml 06/01/21 16:50 06/01/21 16:51 Iopamidol-370 (76%);100ml Bottle IV 06/01/21 16:51 75 ml ONCE ONE Administration Sodium Chloride 10 ml 06/01/21 16:50 06/01/21 16:51 Sodium Chloride 0.9% 10ml Syr (Rad Only) IV 06/01/21 16:51 10 ml ONCE ONE Administration ORDERS Category Date Time Status Troponin I Q3H Lab 06/01/21 18:30 Ordered Troponin I Q3H Lab 06/01/21 21:30 Ordered Urinalysis and Microscopic Stat Lab 06/01/21 15:26 Ordered Abdominal Pain HPI - General Chief Complaint: Abdominal Pain Stated Complaint: ABD PAIN Time Seen by Provider: 06/01/21 16:03 Mode of Arrival: EMS Limitations: Physical Limitations Description of Symptoms (Recalled from ER Triage Doc. by RN): TO ED PER [facility] WITH C/O RUQ ABD PAIN, NAUSEA STARTING YESTERDAY. PT WITH HX OF LUNG AND RECTAL CANCER AND WAS TOLD THERE WAS NO FURTHER TX FOR HER. - History of Present Illness HPI narrative: This 85-year-old female complains of
[2021-06-01 16:04] LABS: Blood Urea Nitrogen 11 mg/dl (7-17); Creatinine Clearance Estimated 43 mL/min (50-200); Estimated Glomerular Filt Rate 118 ml/min (>60); GFR (African American) 143 ML/MIN (>60)
[2021-06-01 16:05] LABS: Alanine Aminotransferase 10 U/L (12-78); Albumin Level 2.3 g/dl (3.5-5.0); Albumin/Globulin Ratio 0.7 (1.1-1.8); Alkaline Phosphatase 242 U/L (38-126); Anion Gap 3.3 mEq/L (5-15); Aspartate Amino Transferase 34 U/L (14-36); Bilirubin,Total 0.8 mg/dl (0.2-1.3); Calcium 8.2 mg/dl (8.4-10.2); Carbon Dioxide 34 mmol/L (22.0-30.0); Globulin 3.2 g/dL (1.3-3.2); Glucose 103 mg/dl (74-100); Total Protein,Serum 5.5 g/dl (6.3-8.2)
[2021-06-01 16:07] LABS: Amylase < 30 U/L (30-110); Lipase < 10 U/L (23-300)
[2021-06-01 16:18] LABS: Troponin I 0.01 ng/ml (0.00-0.034)
[2021-06-01 17:23] VITALS: BP 138/81; PULSE 84
[2021-06-01 17:40] LABS: Coronavirus 19, PCR Not Detected (NotDetected); Influenza A, PCR Not Detected (NotDetected); Influenza B, PCR Not Detected (NotDetected)
[2021-06-01 18:00] VITALS: BP 137/76; PULSE 86; O2SAT 96
[2021-06-01 18:30] VITALS: BP 141/72; PULSE 84
[2021-06-01 19:16] VITALS: BP 157/90; PULSE 55; RESP 16; TEMP 36.6; O2SAT 98
== END 2021-06-01 19:20 | disposition home or self-care (01) ==
PROVIDERS: Emergency Provider Internal Medicine; PCP Family Medicine
DX: C78.7 Secondary malignant neoplasm of liver and intrahepatic bile duct (principal); C77.2 Secondary and unspecified malignant neoplasm of intra-abdominal lymph nodes; I10 Essential (primary) hypertension; E78.5 Hyperlipidemia, unspecified; E11.9 Type 2 diabetes mellitus without complications; F17.210 Nicotine dependence, cigarettes, uncomplicated; Z79.899 Other long term (current) drug therapy
CPT/HCPCS: 71045; 74177; 80053; 82150; 83605; 83690; 84484; 85007; 85025; 93005; 96374; 99284; Q9967; U0003

== ENCOUNTER → 2021-07-04 19:26 | Outpatient (CLI) | payer OTHER, MEDICARE, SELFPAY ==
[2021-07-04 19:33] LABS: Microscopic, Urine URINE MICROSCOPIC (MICROSCOPIC)
[2021-07-04 20:13] LABS: Appearance,Urine CLEAR (Clear); Bilirubin,Urine Negative (Negative); Blood, Urine Negative (Negative); Color,Urine YELLOW (Yellow); Glucose,Urine (UA) Negative (Negative); Ketones,Urine Negative (Negative); Leukocyte Esterase,Urine Negative (Negative); Nitrate,Urine Negative (Negative); PH,Urine 6.5 (5.0-8.5); Protein,Urine Negative (Negative); Urobilinogen,Urine 0.2 EU/dl (0.2)
[2021-07-04 20:46] LABS: Squamous Epithelial Cell,Urine Occasional #/hpf (0-5)
== END ==
PROVIDERS: Visit Provider Family Medicine
DX: R41.0 Disorientation, unspecified (principal)
CPT/HCPCS: 81001; 87086